=== PATIENT | female | born 1950 | race Caucasian/White ===

== ENCOUNTER 2017-05-16 00:22 | Inpatient (IN) | payer MEDICARE, SELFPAY ==
[2017-05-16 01:26] LABS: #Basophils 0.1 thou/uL (0.0-0.2); #Eosinphils 0.1 thou/uL (0.0-0.7); #Lymphocytes 1.5 thou/uL (1.20-3.40); #Monocytes 0.7 thou/uL (0.11-0.59); %Basophils 0.5 % (0.0-1.0); %Eosinophils 1.2 % (0.0-10.0); %Lymphocytes 12.2 % (21.0-51.0); %Monocytes 5.9 % (0.0-10.0); %Neutrophils 80.2 % (42.0-75.0); Band 1 % (5-11); Eosinophils 3 % (0-10); Hypochromia MARKED = >30 cells (100X) (0-5/hpf); Lymphocytes 19 % (21-51); MDiff Complete? YES; Mean Corpuscular Volume 57.9 fl (81.0-99.0); Mean Platelet Volume 5.7 fL (7.4-10.4); Microcytosis MARKED = >30 cells (100X) (0-5/hpf); Monocytes 3 % (0-10); Neutrophil 74 % (42-75); Nucleated RBC 1 % (0); Ovalocytes SLIGHT = 2-5 cells (100X) (0-1/hpf); PLT Morphology Comment Appears Adequate; Platelet Count 347 thou/uL (130-400); RBC Distribution Width 21.6 % (11.5-14.5); Reflex for Review?? YES; White Blood Cell (WBC) Count 12.5 thou/uL (4.8-10.8)
[2017-05-16 01:28] LABS: ALT (SGPT) 146 U/L (8-55); AST (SGOT) 49 U/L (5-34); Albumin 3.5 g/dL (3.4-4.8); Alkaline Phosphatase 163 U/L (40-150); Anion Gap 18 mmol/L (10-20); BUN (Urea Nitrogen) 20 mg/dL (9.8-20.1); Bilirubin, Total 0.3 mg/dL (0.2-1.2); Calc. Creatinine Clearance 0 mL/min (70-130); Calcium 8.9 mg/dL (7.8-10.44); Carbon Dioxide 19 mmol/L (23-31); Chloride 103 mmol/L (98-107); Estimated GFR-MDRD 53; Globulin 3.1 g/dL (2.4-3.5); Glucose 158 mg/dL (80-115); Protein, Total 6.6 g/dL (6.0-8.3); Sodium 136 mmol/L (136-145)
[2017-05-16 01:30] LABS: CKMB 1.9 ng/mL (0-6.6); Troponin I 0.013 ng/mL (< 0.028)
[2017-05-16 01:45] LABS: Hemoglobin 3.5 g/dL (12.0-16.0); Mean Corpuscular HGB CONC 26.9 g/dL (32.0-36.0); Mean Corpuscular Hemoglobin 15.6 pg (27.0-31.0); Mean Platelet Volume 5.6 fL (7.4-10.4); Platelet Count 372 thou/uL (130-400); RBC Distribution Width 21.4 % (11.5-14.5); Red Blood Cell (RBC) Count 2.22 mill/uL (4.20-5.40); White Blood Cell (WBC) Count 13.7 thou/uL (4.8-10.8)
[2017-05-16 02:07] LABS: #Basophils 0.1 thou/uL (0.0-0.2); #Eosinphils 0.1 thou/uL (0.0-0.7); #Lymphocytes 1.6 thou/uL (1.20-3.40); %Basophils 0.6 % (0.0-1.0); %Eosinophils 0.7 % (0.0-10.0); %Lymphocytes 11.7 % (21.0-51.0); %Monocytes 7.1 % (0.0-10.0); %Neutrophils 79.9 % (42.0-75.0); Hypochromia MARKED = >30 cells (100X) (0-5/hpf); Lymphocytes 9 % (21-51); MDiff Complete? YES; Microcytosis MODERATE=15-30 cells (100X) (0-5/hpf); Monocytes 4 % (0-10); Neutrophil 86 % (42-75); Nucleated RBC 1 % (0); Ovalocytes SLIGHT = 2-5 cells (100X) (0-1/hpf); PLT Morphology Comment Appears Adequate
[2017-05-16 02:28] LABS: Reticulocyte Count 3.1 % (0.5-1.5)
[2017-05-16 03:18] LABS: Iron Less than 8 ug/dL (50-170); Iron Binding Capacity, Total 519 mcg/dL (265-497); Iron Binding Capacity, Total 521 mcg/dL (265-497)
[2017-05-16] MEDS ORDERED: Ondansetron HCl/PF 4 MG/2 ML Vial IVP PRN (03:31)
[2017-05-16] MEDS ORDERED: Acetaminophen 325 MG TAB PO PRN (03:31)
[2017-05-16] MEDS ORDERED: Ondansetron ODT 4 MG TAB SL PRN (03:31)
[2017-05-16 03:39] VITALS: BMI 41.6
[2017-05-16] MEDS ORDERED: Bisacodyl 10 MG SUPP PR PRN (04:56)
[2017-05-16] MEDS ORDERED: Ondansetron ODT 4 MG TAB PO PRN (04:56)
[2017-05-16] MEDS ORDERED: Bisacodyl 5 MG TAB PO SCH (05:00)
[2017-05-16 05:31] LABS: INR-International Normal Ratio 1.4; PTT 34.5 SEC (22.9-36.1); Prothrombin Time 17.7 SEC (12.0-14.7)
[2017-05-16] MEDS ORDERED: Nicotine 14 MG PATCH TD PRN (06:00)
--- NOTE | 2017-05-16 07:34 | HP-2 ---
DATE OF ADMISSION: 05/16/2017 CODE STATUS: FULL. PRIMARY CARE PHYSICIAN: Dr. Heath ATTENDING: Dr. Karen Rivas RESIDENT: Terell Painter M.D. - PGY-1 CHIEF COMPLAINT: Shortness of breath. HISTORY OF PRESENT ILLNESS: This is a 67-year-old female that was moving around in bed and all of a sudden got short of breath, could not move and then blacked out. She said she blacked out for like 3-5 minutes until the ambulance got there and brought her to the hospital. This happened around this evening. She says that she has been having some of these episodes of shortness of breath , getting real weak in the legs for the last few months now. She had been seeing some specialist, been trying to get some testing, has seen a heart and lung doctors over the last 4 months, has not had any real answers. She has gotten some labs ordered by Dr. Heath at the clinic, but she has not been in to get those labs drawn. She said over the last 4 months she just progressively gotten worse, gets weak, gets real short of breath, hard for her to even hold her grandchild at times. Denies any chest pain, denies any headache. The only time she ever lost consciousness was the episode last night , other than that she said she has had times where her legs have went out, but never lost consciousness, but says that she has gotten close. Reports nausea, denies any vomiting, diarrhea. Reports constipation for the last 5 days. Reports her mouth being very dry, reports that she has had decreased appetite, only eats a few bites of food for the last few months, reports having chills. Denies any fevers. She denies any blood in her stools, denies any vaginal bleeding, denies any blood in her urine. Denies any vomiting or bloody vomitus , but has reported the last few months sometimes she goes to wipe and does note blood on her wiping and there is some bloody stool at times, but has not noticed any recently. REVIEW OF SYSTEMS: All review of systems not listed in the HPI are otherwise negative at this time. PAST MEDICAL HISTORY: Diabetes mellitus type 2, DVTs in the left lower extremity, depression, tobacco abuse, peripheral vascular disease, hyperlipidemia and hypertension. PAST SURGICAL HISTORY: Hysterectomy and appendectomy. ALLERGIES: PENICILLIN causing rash. MEDICATIONS: 1. Sertraline 100 mg 1 p.o. daily. 2. Trazodone 100 mg 1 p.o. at bedtime. 3. Simvastatin 40 mg 1 tablet at bedtime. 4. Lisinopril/hydrochlorothiazide 10/12.5 mg once a day. 5. Metformin 1000 mg extended release 24 hours 1 tab daily. 6. Chantix 1 mg tablet as directed in the pack. 7. Requip 1 mg 1 p.o. at bedtime. 8. Nitroglycerin 0.4 mg sublingual tablets. 9. Aspirin 81 mg tablet. 10. Ventolin HFA inhalation aerosol solution q.4h. p.r.n. shortness of breath. 11. Eliquis 5 mg oral tablet, take 1 tablet by mouth twice daily. FAMILY HISTORY: Dad had CHF and pacemaker in place. Mom from bowel obstructions when she was 16 and from complications of surgery. PHYSICAL EXAMINATION: VITAL SIGNS: Blood pressure is 109/61, pulse 103, respirations 24, temperature is 97.2, pulse ox 100% on 2 liters. Current weight is 116 kilograms. GENERAL: She is alert and oriented x3. Well-developed, well-nourished. She is obese. She is very pale, very ashen, appropriately interactive. EYES: PERRLA. Conjunctivae are within normal limit. ENT: She has very dry mucous membranes in her mouth. No cracking, no bleeding noted. NECK: Supple, no lymphadenopathy, no thyromegaly, no bruits. CARDIOVASCULAR: Regular rate and rhythm. No murmurs, no gallops. It is hard to auscultate fully for a murmur due to her body habitus. Radial pulses, pedal pulses palpated bilaterally. RESPIRATORY: Normal breathing effort. No retractions. LUNGS: Clear to auscultation bilaterally. Again, hard to auscultate due to body habitus. ABDOMEN: Soft, nontender to palpation. Bowel sounds are in all 4 quadrants. She is mildly distended. No masses noted. Nonpainful. No rebound or guarding , no hepatomegaly noticed. EXTREMITIES: No edema, no pitting. MUSCULOSKELETAL: Structures within normal limits. She has a little bit of decreased strength. She is kind of weak, is shaking sometimes at times, gets chills often, has full range of motion. NEUROLOGIC: No focal neuro deficits. Sensation within normal limits. PSYCHIATRIC: Appropriate. LABORATORY DATA: White blood cell count 13.7, hemoglobin is 3.5. Hematocrit is 12.9, MCV is 58, platelets are 372. Sodium is 136, potassium is 4.0, chloride 103, bicarbonate is 19, BUN is 20, creatinine 1.04, GFR is 53, glucose is 158. CK-MB is 1.9, troponin 0.013. Calcium is 8.9, total protein 6.6, albumin 3.5, total bilirubin 0.3, AST is 49, ALT is 146, alkaline phosphatase 163. Iron is less than 8. TIBC is 519. Fecal occult blood test is negative. Chest x-ray and brain CT reads are pending at this time. ASSESSMENT AND PLAN: 1. Syncope secondary to symptomatic anemia, reports blood in stools in the past. We will give her 2 blood transfusions. Recheck H&H after 4 hours and possibly need further transfusion after. We will get a CT of her abdomen and pelvis as she is constipated and possibly having GI bleed. We will get possible GI consult. We will repeat fecal occult blood test. We will keep her n.p.o. for now. Depending on what GI wants to do. We will continue to follow and treat symptoms as needed. 2. Transaminitis. Plan as above, getting a CT abdomen and pelvis. We will repeat a.m. CMP tomorrow and check labs. 3. Diabetes mellitus type 2. Holding metformin for imaging at this time, can restart afterwards. Blood sugars are stable. We will restart insulin if sugars get above 180. Does not take insulin at home. 4. Deep venous thrombosis. Holding Eliquis due to the symptomatic anemia and bleed. We will give sequential compression devices for DVT prophylaxis right now. 5. Hypertension. Continue lisinopril/hydrochlorothiazide. 6. Hyperlipidemia. Continue her statin. 7. Tobacco abuse. She takes Chantix at home. We will give her nicotine patch while she is here p.r.n. as needed. 8. Constipation. Will give her Bisacodyl and may need to add more medications if she continues to not have a bowel movement. 9. Elevated Troponin. Troponin likely elevated due to demand ischemia. Will trend. MTDD
--- NOTE | 2017-05-16 07:54 | RAD ---
SINGLE VIEW CHEST: Date: 05/16/17 COMPARISON: 10/12/13. HISTORY: Difficulty breathing and syncope. FINDINGS: Single view of the chest shows an enlarged cardiomediastinal silhouette. There is no evidence of cons olidation, mass, or pleural effusion. Degenerative changes are seen in the spine. IMPRESSION: Cardiomegaly without evidence of acute cardiopulmonary disease. POS: [facility]
--- NOTE | 2017-05-16 08:50 | CT ---
PRELIMINARY REPORT/[facility]/EMERGENCY AFTER HOURS PROCEDURE: EXAM: CT Head Without Intravenous Contrast CLINICAL HISTORY: 67 years old, female; Signs and symptoms; Syncope and collapse; Patient HX: 67 yo f presents to ed fo r syncopal episode. Pt reports feeling SOB for past x3-4 months. Tonight, pt was trying to get a pill ow when she started feeling like she couldn't breathe then had a syncopal episode. On ems arrival, pt with gcs 3 and unresponsive. Pt was bagged for a few minutes then gcs improved to 15 for rest of tra nsport. Pt states this is the first time she has passed out but ems reports pt's friend says pt has been having syncopal episodes for past few months. Ems reports pt C/O burning sensation to legs with walking. Pt has h/o x3 dvts, takes eliquis. Pt not on home o2. TECHNIQUE: Axial computed tomography images of the head/brain without intravenous contrast. COMPARISON: No relevant prior studies available. FINDINGS: Brain: Mild volume loss No hemorrhage. No significant white matter disease. No edema. Ventricles: Unremarkable. No ventriculomegaly. Bones/joints: Unremarkable. No acute fracture. Soft tissues: Unremarkable. Sinuses: Unremarkable as visualized. No acute sinusitis. Mastoid air cells: Unremarkable as visualized. No mastoid effusion. IMPRESSION: No intracranial hemorrhage.Please see discussion above. Thank you for allowing us to participate in the care of your patient. Dictated and Authenticated by: Dmitry Pop MD 05/16/2017 1:18 AM Central Time ([place] & [place]) FINAL REPORT EMERGENT AFTER HOURS CT OF THE BRAIN WITHOUT CONTRAST: FINDINGS/IMPRESSION: I agree with the findings and impression given in the preliminary report per [facility] physician. No dieudonne dence of acute intracranial abnormality. POS: [facility]
[2017-05-16] MEDS: Lisinopril/Hydrochlorothiazide 10 mg/12.5 mg Tablet PO SCH (11:58)
[2017-05-16 13:38] LABS: Hemoglobin 5.1 g/dL (12.0-16.0)
--- NOTE | 2017-05-16 13:55 | CT ---
CT OF THE ABDOMEN AND PELVIS WITHOUT AND WITH CONTRAST: COMPARISON: None. HISTORY: Syncope. Rectal bleeding and anemia. Elevated LFTs. TECHNIQUE: Multiple contiguous axial images were obtained in a CT of the abdomen and pelvis without and with IV contrast. P.o. contrast was administered. Coronal reformats were performed. FINDINGS: The liver, gallbladder, kidneys, adrenal glands, spleen, and pancreas are unremarkable. No free air, free fluid, or stranding changes are seen in the abdomen or pelvis. There are scattered diverticula in the colon. No obvious colonic mass is seen. The small bowel is n ormal in caliber without focal abnormality. Atherosclerotic calcifications are seen in the aorta. No abdominal or pelvic lymphadenopathy are see n. There is a 2.1 cm fat-containing umbilical hernia. There are varices in the lower abdominal wall. I t appears that these varices are caused by venous obstruction of the left leg. The left external rebel ac vein and common iliac vein are minuscule in size. The right external iliac vein and common iliac vein are normal in appearance. These varices likely help drain the left leg to the right external il iac vein. The visualized inferior thorax is unremarkable. Degenerative changes are seen in the spin e. IMPRESSION: 1. Diverticulosis. 2. Abnormal venous drainage of the left leg as above with collateral flow in the lower abdominal wal l. POS: [facility]
[2017-05-16] MEDS ORDERED: Iopamidol 370 76% 100 ML VIAL ONE (15:48)
--- NOTE | 2017-05-16 16:22 | CON ---
DATE OF CONSULTATION: 05/16/2017 REFERRING PHYSICIAN: Dr. Flower Heath REASON FOR CONSULTATION: Severe, symptomatic anemia. The admitting hemoglobin was 3.5, hematocrit 1 2.9. HISTORY OF PRESENT ILLNESS: Elham Vo is a 67-year-old female who has been seeing Dr. Natividad Heath for the last couple of years. The patient had been having difficulty breathing over the l ast 6-7 months. This is more exertional dyspnea. She had no orthopnea or PND. The symptoms are get ting progressively worse. She was seen by Dr. Nick Blanchard 6 or 7 months ago and her cardiology workup was negative. She was supposed to see Dr. Aquino, nutrition and dietetics instructor this past coming . Apparpatricia mitch she had a PFT done as an outpatient. The symptoms are progressive and getting worse and worse. The patient has no history of asthma or disease. The patient has no history of hematochezia or melena. However, she tells me she had 1 episode of dark stool about 4-6 months ago. The patient's bowel movements are fairly regular. There is no history of change in bowel habits. No abdominal varghese n. She does complain of nausea and poor appetite recently. There is no dysphagia or odynophagia. T here is no prior history of anemia. She is status post hysterectomy several years ago. The patient apparently was walking around yesterday at home and she felt dizzy and fainted. This lasted only abo ut 3-5 minutes. An ambulance was called and she was brought to the ER. In the ER, the evaluation sh owed severe anemia. She has been transfused so far 2 units of packed RBCs. No other relevant histor y. ALLERGIES: PENICILLIN. SOCIAL HISTORY: The patient is a former smoker. She also does not drink alcohol. MEDICAL ILLNESSES: 1. Hypertension. 2. Diabetes mellitus. 3. Deep vein thrombosis, left leg and is on Eliquis 1 twice a day. 4. Hyperlipidemia. 5. Depression/anxiety. SURGERIES: 1. Status post appendectomy. 2. Status post hysterectomy. FAMILY HISTORY: Strong heart disease in her father. Mother of a bowel obstruction and complica tions with surgery. MEDICATIONS: Reviewed which include sertraline, trazodone, simvastatin, lisinopril/ hydrochlorothiaz crystal, metformin, Chantix, Requip, nitroglycerin p.r.n., Ventolin inhaler and Eliquis 5 mg p.o. twice a day. REVIEW OF SYSTEMS: AUDIO VIDEO TECH: Syncope yesterday most likely secondary to profound anemia, no history of TIA, no chronic heada domi, no dizziness from before. No seizure disorder. RESPIRATORY: No history of dyspnea on exertion, no coughing, no wheezing. No hemoptysis. CARDIOVASCULAR: Exertional dyspnea and usually has some mild orthopnea. No history of chest pain, n o palpitations. GASTROINTESTINAL: As in history of present illness. GENITOURINARY: No hematuria or dysuria. MUSCULOSKELETAL/ENDOCRINE/HEMATOLOGICAL: Unremarkable. NEUROPSYCHIATRIC: History of depression. PHYSICAL EXAMINATION: GENERAL: Patient is obese, appears comfortable. She is awake, alert, and communicative. She is khadar ented to time, place and person. VITAL SIGNS: Afebrile, temperature 98.8 degrees Fahrenheit, pulse is 75, blood pressure 103/63. HEENT: Conjunctivae clear. NECK: Supple. No adenitis or thyromegaly noted. CARDIOVASCULAR: First and second heart sounds normal. LUNGS: Clear to auscultation. ABDOMEN: Flabby and pendulous. Abdomen is nontender. She does have a scar over the midline lower a bdomen. There is no organomegaly or masses. Bowel sounds are normal. EXTREMITIES: No edema. LABORATORY DATA: From today, CBC: WBC 13,700, hemoglobin 3.5 and hematocrit 12.9, MCV 58, platelet count 372,000, polymorphs 86, lymphocytes 11, monocytes 9. Serum chemistries; sodium 136, potassium 4, chloride 103, bicarbonate 19, BUN 20, creatinine is 1.04, glucose 158, calcium 8.9. Iron is 8, TI BC is 521 indicating iron deficiency, AST 49, ALT 146, alkaline phosphatase 163, bilirubin 0.3, album in is 3.5. The patient is about to get a CAT scan of abdomen and sonogram later on today. CLINICAL IMPRESSION: 1. A 67-year-old with severe symptomatic anemia indicative of slow blood loss. The patien t did have an episode of some dark stools a few months ago. The patient is on Eliquis over the last several months because of deep venous thrombosis. Her anemia is very profound and also says she is s everely iron deficient. 2. Obesity. 3. Hypertension. 4. Diabetes mellitus. 5. Hyperlipidemia. 6. Deep venous thrombosis. RECOMMENDATIONS: Hold the Eliquis for the next 48 hours and I will plan for EGD and colonoscopy . In the meantime, I agree with proceeding with abdominal CAT scan and sonogram because of abnormal liver function tests.
--- NOTE | 2017-05-16 17:33 | PDOC.EVN ---
Event Note - Event Note Event Note: Patient seen and evaluated with resdients. Case discussed with Dr. Painter and agree with history, physical and assessment and plan as documented by resident. Briefly, this is a 67 year old female with history of type 2 DM, HTN, HLD, and recurrent DVT on eliquis presents after syncopal episode at home. PAtient reports that she has been having some near-syncopal episodes for last 1-2 months but never completely blacked out until last night. Has been having increased SOB over similar amount of time. Denies any CP, CHERRY. Denies any N/V/D, abdominal pain, hematemesis, hematochezia. Significant lab Hgb=3.0, Hct= 11.6, Fe = 8. A/P: 1) Severe symptomatic iron deficiency anemia- transfused 2u pRBCs- repeat Hgb= 5.1; trasnfuse additional 2 pRBCs. GI consuilted and will plan for RGD and colonoscopy on Tuesday after patient has been off the eliquis. Hold eliquis due to severe anemia. 2) H/o recurrent LLE DVT- hold eliquis for now pending GI evaluation; may need IVC filter. 3) DM- continue home meds. 4) Transaminitis- uncertain etiology- CT abd and RUQ USG ordered.
[2017-05-16] MEDS: Acetaminophen 325 MG TAB PO PRN (17:50)
[2017-05-16 20:17] LABS: Hemoglobin 5.6 g/dL (12.0-16.0)
[2017-05-16] MEDS: Simvastatin 40 MG TAB PO SCH (20:24)
[2017-05-16] MEDS: traZODone HCl 50 MG TAB PO SCH (20:24)
[2017-05-17 05:59] LABS: ALT (SGPT) 123 U/L (8-55); AST (SGOT) 63 U/L (5-34); Albumin 3.7 g/dL (3.4-4.8); Alkaline Phosphatase 173 U/L (40-150); Anion Gap 12 mmol/L (10-20); BUN (Urea Nitrogen) 19 mg/dL (9.8-20.1); Bilirubin, Total 0.5 mg/dL (0.2-1.2); Calc. Creatinine Clearance 106 mL/min (70-130); Calcium 9.1 mg/dL (7.8-10.44); Carbon Dioxide 25 mmol/L (23-31); Chloride 104 mmol/L (98-107); Estimated GFR-MDRD 55; Globulin 3.1 g/dL (2.4-3.5); Glucose 138 mg/dL (80-115); Potassium 4.2 mmol/L (3.5-5.1); Protein, Total 6.8 g/dL (6.0-8.3); Sodium 137 mmol/L (136-145)
[2017-05-17 06:15] LABS: #Eosinphils 0.1 thou/uL (0.0-0.7); #Lymphocytes 1.7 thou/uL (1.20-3.40); #Neutrophils 8.6 thou/uL (1.40-6.50); %Basophils 0.4 % (0.0-1.0); %Eosinophils 0.8 % (0.0-10.0); %Lymphocytes 14.6 % (21.0-51.0); %Monocytes 8.5 % (0.0-10.0); %Neutrophils 75.8 % (42.0-75.0); Acanthocytes SLIGHT = 1-5 cells (100X) (None Seen); Anisocytosis MARKED = >30 cells (100X) (0-5/hpf); Band 1 % (5-11); Elliptocytes SLIGHT = 2-5 cells (100X) (0-1/hpf); Eosinophils 1 % (0-10); Hemoglobin 6.7 g/dL (12.0-16.0); Hypochromia MARKED = >30 cells (100X) (0-5/hpf); Lymphocytes 13 % (21-51); MDiff Complete? YES; Mean Corpuscular HGB CONC 30.5 g/dL (32.0-36.0); Mean Corpuscular Hemoglobin 21.9 pg (27.0-31.0); Mean Corpuscular Volume 71.6 fl (81.0-99.0); Monocytes 4 % (0-10); Neutrophil 81 % (42-75); Nucleated RBC 1 % (0); PLT Morphology Comment Appears Adequate; Platelet Count 293 thou/uL (130-400); Polychromasia SLIGHT = 2-3 cells (100X) (0-2/hpf); RBC Distribution Width 28.3 % (11.5-14.5); Red Blood Cell (RBC) Count 3.06 mill/uL (4.20-5.40); Schistocytes SLIGHT = 2-5 cells (100X) (0-1/hpf); White Blood Cell (WBC) Count 11.4 thou/uL (4.8-10.8)
[2017-05-17] MEDS ORDERED: Prevnar 13-Val Conj/PF 0.5 ML SYRINGE IM ONE (09:00)
--- NOTE | 2017-05-17 09:05 | PDOC.FM ---
- Subjective Subjective: Patient reports doing well overnight. Denies dizziness when walking to bathroom. Pain in knee still present, but improving. Denies N/V, CP, SOB, CHERRY. - Objective MAR Reviewed: Yes Vital Signs & Weight: Vital Signs (12 hours) Temp Pulse Pulse Resp BP BP BP 05/17/17 08:00 99.2 F 81 20 138/80 05/17/17 04:00 98.3 F 75 18 126/75 05/17/17 01:17 98.5 F 81 18 126/62 05/16/17 23:43 98.2 F 83 20 117/69 05/16/17 22:40 98.9 F 79 18 119/76 05/16/17 22:25 8.5 F L 81 20 122/66 Pulse Ox 05/17/17 08:00 94 L 05/17/17 04:00 97 05/17/17 01:17 96 05/16/17 23:43 98 05/16/17 22:40 95 05/16/17 22:25 95 Weight Weight 122.697 kg I&O: 05/16/17 05/17/17 05/18/17 06:59 06:59 06:59 Intake Total 541 2690 Balance 541 2690 Result Diagrams: 05/17/17 05:23 05/17/17 05:23 <Ramy Reese - Last Filed: 05/17/17 09:03> - Objective Vital Signs & Weight: Vital Signs (12 hours) Temp Pulse Pulse Pulse Pulse Resp BP 05/17/17 14:58 98.2 F 79 20 05/17/17 12:10 76 88 05/17/17 11:35 98.9 F 79 20 05/17/17 09:48 81 138/80 05/17/17 08:00 99.2 F 81 20 BP BP BP BP Pulse Ox Pulse Ox Pulse Ox 05/17/17 14:58 118/73 05/17/17 12:10 119/63 111/58 L 96 97 05/17/17 11:35 117/60 95 05/17/17 09:48 05/17/17 08:00 138/80 94 L Weight Weight 122.697 kg I&O: 05/16/17 05/17/17 05/18/17 06:59 06:59 06:59 Intake Total 541 2690 360 Balance 541 2690 360 Result Diagrams: 05/17/17 09:07 05/17/17 05:23 <NielsAny Shirin - Last Filed: 05/17/17 16:27> Phys Exam - Physical Examination Constitutional: NAD HEENT: PERRLA, moist MMs Neck: no JVD, full ROM Respiratory: no wheezing, clear to auscultation bilateral Cardiovascular: RRR, no significant murmur Gastrointestinal: soft, non-tender Musculoskeletal: no edema, pulses present Neurological: normal sensation, moves all 4 limbs Psychiatric: normal affect, A&O x 3 <Ramy Reese - Last Filed: 05/17/17 09:03> Dx/Plan (1) Symptomatic anemia Code(s): D64.9 - ANEMIA, UNSPECIFIED Status: Acute Plan: patient is s/p 4 units pRBC symptoms improved, but still occasionally requires oxygen GI consulted, recs greatly appreciated colonoscopy tomorrow (2) Transaminitis Code(s): R74.0 - NONSPEC ELEV OF LEVELS OF TRANSAMNS & LACTIC ACID DEHYDRGNSE Status: Acute Plan: improving, suspected due to poor perfusion continue to monitor (3) PVD (peripheral vascular disease) Code(s): I73.9 - PERIPHERAL VASCULAR DISEASE, UNSPECIFIED Status: Acute (4) DM type 2 (diabetes mellitus, type 2) Status: Acute Plan: continue home medications (5) Hyperlipidemia Code(s): E78.5 - HYPERLIPIDEMIA, UNSPECIFIED Status: Acute Plan: d/c home on statin (6) History of DVT (deep vein thrombosis) Code(s): Z86.718 - PERSONAL HISTORY OF OTHER VENOUS THROMBOSIS AND EMBOLISM Status: Acute (7) HTN (hypertension) Code(s): I10 - ESSENTIAL (PRIMARY) HYPERTENSION Status: Acute Plan: continue home meds (8) Depression Code(s): F32.9 - MAJOR DEPRESSIVE DISORDER, SINGLE EPISODE, UNSPECIFIED Status : Acute (9) Tobacco use Code(s): Z72.0 - TOBACCO USE Status: Acute Plan: nicotine patch prn <Ramy Reese - Last Filed: 05/17/17 09:03> Attending Addendum - Attending Addendum I personally evaluated the patient and discussed the management with Dr. Reese I agree with the History, Examination, Assessment and Plan documented above with any addition or exceptions noted below. Severe Symptomatic iron deficiency anemia- improving after 4U PRBC. Hgb 3-6.7. Still with dypnea on exertion. Will transuse 1 more PRBC with goal hgb >7. EGD /colonoscopy tomorrow with Dr. Houston. Narrowed left external and common iliac vein with collaterals- probably contributing to recurrent DVTs Recurrent DVTs- off eliquis for now. Will discuss IVC filter placement with CV Surgery. <Any Bowser - Last Filed: 05/17/17 16:27>
[2017-05-17 09:24] LABS: Hemoglobin 6.9 g/dL (12.0-16.0)
[2017-05-17] MEDS: Lisinopril/Hydrochlorothiazide 10 mg/12.5 mg Tablet PO SCH (09:48)
--- NOTE | 2017-05-17 12:26 | PRG ---
DATE OF SERVICE: 05/17/2017 Ms. Elham Vo is a very pleasant 67-year-old female hospitalized with a syncopal episode. She was found to have severe microcytic anemia subsequently. The patient has been transfused. The admi tting CBC showed severe anemia with hematocrit of 11.6, hemoglobin 3. It went up to 6.7 this morning . The hematocrit is 21.9. She is actually feeling symptomatically much better. She has no abdomina l pain, no nausea or vomiting. She had an abdominal CAT scan done yesterday which revealed nonbleedi ng hernia, varicosities over the periumbilical area and also diverticulosis. She has no complaints. PHYSICAL EXAMINATION: GENERAL: Patient is obese, appears comfortable. VITAL SIGNS: Temperature 98.9 degrees Fahrenheit, pulse is 79, blood pressure is 117/60. CARDIOVASCULAR: Within normal limits. ABDOMEN: Soft to palpate. No organomegaly. No tenderness. No masses. ADMITTING DIAGNOSIS: 1. Severe microcytic anemia. 2. Iron deficiency. PLAN: EGD and colonoscopy tomorrow. I had a long talk with Ms. Vo and explained about the bow el prep with clear liquid diet for all of today and also the entire [employer] prep this evening and to morning. I explained the procedure in detail. She is agreeable. I will plan for EGD and col onoscopy tomorrow morning.
[2017-05-17] MEDS: Acetaminophen 325 MG TAB PO PRN ×2 (14:45→22:00)
[2017-05-17] MEDS ORDERED: GoLYTELY 4,000 ml Bottle PO SCH (17:00)
--- NOTE | 2017-05-17 17:31 | ULT ---
RIGHT UPPER QUADRANT ULTRASOUND: 05/17/17 INDICATION: Transaminitis. FINDINGS: There is heterogeneity and prominence of the gallbladder wall. The gallbladder is contacted which jerome s limit assessment. There is a punctate focus of increased echogenicity within the contracted gallbla dder lumen. Lemon's sign is reported as negative by airline reservation agent. Common duct is normal in diameter. There is mild increased echogenicity of the liver which may be on the basis of fatty infiltration. No ascites is seen. IMPRESSION: Abnormal heterogeneity and thickening of the gallbladder wall, although the gallbladder is contracted which limits assessment. Recommend clinical correlation in this regard. There is no shadowing cholelithiasis evident. Punctate focus of increased echogenicity of the gallbladder lumen may be on the basis of a small poly p. Attempt for further characterization may be obtained with repeat exam where the gallbladder is mor e optimally distended. POS: [facility]
--- NOTE | 2017-05-17 20:38 | CON ---
DATE OF CONSULTATION: 05/17/2017 REQUESTING PHYSICIAN: Dr. Ramy Reese. CHIEF COMPLAINT: Syncope. HISTORY OF PRESENT ILLNESS: The patient is a 67-year-old woman with previous history of deep venous thrombosis who has been on anticoagulation for many years. She recently had fairly sudden developmen t of shortness of breath and then fainted and upon presentation at the emergency room, screening labs showed her to be profoundly anemic with hemoglobin in the 3s an MCV in the 50s. Her Eliquis is on h old and she has been transfused. She is scheduled for upper and lower GI endoscopy to assess for jim dily accessible gastrointestinal source of blood loss. The patient tells me that she has had 3 episo mckinley of deep venous thrombosis in the last 30 or so years and in review of the [facility] records, I s ee 2 encounters, one in 2013 and 2014 that could be attributed to issues related to DVT. The most re cent one in 2014, she says is the last time she underwent any sort of evaluation or had any suspicion that she had recurrence of DVT. At that time, there was compressibility of the veins seen and some residual nonocclusive thrombus that was felt to be consistent with old recanalized DVT. The patient says that in the past her legs swelled considerably more than it does now. Her left leg is only smal l amount larger than her right leg currently. She has not had any recent pain or exacerbations of he r swellings associated with either lower extremity. PAST MEDICAL HISTORY: Significant for hypertension, diabetes, hyperlipidemia. PAST SURGICAL HISTORY: She has had a previous hysterectomy and appendectomy. HOME MEDICATIONS: Metformin, Eliquis, Zocor, Zoloft, and trazodone in addition to her Eliquis. Curr ently, she is on prednisone, sertraline, Zocor, trazodone, and her Eliquis is on hold. She is underg oing a bowel prep this evening and is currently on a clear liquid diet. ALLERGIES: She reports an allergy to PENICILLIN, which causes rash. SOCIAL HISTORY: She is a smoker. FAMILY HISTORY: Significant for congestive failure in her father. PHYSICAL EXAMINATION: GENERAL: She is in no distress. VITAL SIGNS: Heart rate is in the 60-80 range. Blood pressure 111/58, temperature is 98.4. She has no obvious xanthelasma. LUNGS: Chest is clear to auscultation. CARDIOVASCULAR: She has a regular rate and rhythm. ABDOMEN: Obese. EXTREMITIES: She has palpable radial, femoral, and dorsalis pedis pulses bilaterally. She has multi ple healed oval scars on both lower legs, more so on the left than on the right. There is perhaps so me subtle increase in size of the left leg, but no overt acute or chronic edema. She has some venous stasis pigmentation changes in both feet and ankles, a little bit more pronounced on the left. NEUROLOGIC: Grossly nonfocal. LABORATORY DATA AND IMAGING: On presentation, her white count was 12.5, hemoglobin 3.0, hematocrit 1 1.6, platelets 347,000. Her MCV was 57.9. Currently, her hemoglobin is 6.7 and hematocrit 21.9 with an MCV of 71.6, reticulocyte count on 05/16/2017 was 3.1. PT was 17.7 with an INR of 1.4, PTT 34.5. Her electrolytes were normal with the exception of CO2 being 19. Her glucose was 158, BUN 20, crea tinine 1.04, bilirubin 0.3, AST 49. ALT 146, alkaline phosphatase 163, protein 6.6, albumin 3.5. Her chest x-ray shows cardiomegaly with prominent pulmonary vascular markings. A contrast to the abdomi nal CT scan by report, the left common and external iliac venous system were described as being minis cule with variceal collaterals crossing over to the right side, but I am not able to pull up the cuts of the CT scan go down that for. The last venous Doppler that I find is from 05/2014 is described a chandrika, suggestive of an old recanalized DVT. Prior to that in 09/2013, there was lack of compressibil ity in the left femoral vein and lack of flow and compressibility in the popliteal vein more suggesti ve of an acute DVT. IMPRESSION AND RECOMMENDATIONS: At this juncture, there is no evidence of acute deep venous thrombos is and she has not had any problems related to it in a few years and it sounds like she may or may no t have been on anticoagulation that entire time. I think the risk of PE with discontinuation of her anticoagulation while her profound anemia is being evaluated is fairly low and at this stage anyway v skye cava filter is probably not warranted.
[2017-05-17 21:37] LABS: Hemoglobin 7.8 g/dL (12.0-16.0)
[2017-05-17] MEDS: traZODone HCl 50 MG TAB PO SCH (21:53)
[2017-05-17] MEDS: Simvastatin 40 MG TAB PO SCH (21:54)
[2017-05-18] MEDS ORDERED: Furosemide 20 MG TAB PO SCH (03:30)
[2017-05-18 06:06] LABS: #Basophils 0.1 thou/uL (0.0-0.2); #Eosinphils 0.2 thou/uL (0.0-0.7); #Lymphocytes 1.8 thou/uL (1.20-3.40); #Neutrophils 8.4 thou/uL (1.40-6.50); %Basophils 0.7 % (0.0-1.0); %Eosinophils 1.4 % (0.0-10.0); %Lymphocytes 15.9 % (21.0-51.0); %Monocytes 8.5 % (0.0-10.0); %Neutrophils 73.5 % (42.0-75.0); Hemoglobin 7.4 g/dL (12.0-16.0); Mean Corpuscular HGB CONC 30.6 g/dL (32.0-36.0); Mean Corpuscular Hemoglobin 22.4 pg (27.0-31.0); Mean Corpuscular Volume 73.2 fl (81.0-99.0); Mean Platelet Volume 5.7 fL (7.4-10.4); Platelet Count 287 thou/uL (130-400); RBC Distribution Width 27.9 % (11.5-14.5); Red Blood Cell (RBC) Count 3.29 mill/uL (4.20-5.40); White Blood Cell (WBC) Count 11.4 thou/uL (4.8-10.8)
[2017-05-18 06:32] LABS: HBCM Index 0.08 S/CO (0-0.79); HBSAB Concentration 0.71 mIU/mL; Hep A IgM AB Non-Reactive (NonReactive); Hep A IgM S/CO 0.19 S/CO (0-0.79); Hep B Surf AB Non-Reactive (NonReactive); Hep B Surf Ag Non-Reactive S/CO (NonReactive); Hep C IgG Ab Non-Reactive (NonReactive); Hep C Index 0.19 S/CO (0-0.79); Hepatitis B Core IGM Abs Non-Reactive (NonReactive)
[2017-05-18] MEDS: Lisinopril/Hydrochlorothiazide 10 mg/12.5 mg Tablet PO SCH (07:59)
--- NOTE | 2017-05-18 11:42 | PDOC.FM ---
- Subjective Subjective: Patient still working on bowel prep this morning. Reports BM still has some brown coloring. Feels she still needs O2 for exertion, though this is improving. Denies CP, N/V. Knee still hurts, mildly improving. - Objective MAR Reviewed: Yes Vital Signs & Weight: Vital Signs (12 hours) Temp Pulse Resp BP BP Pulse Ox 05/18/17 08:00 100 F H 78 20 05/18/17 07:59 78 139/71 05/18/17 07:56 100.0 F H 78 20 134/58 L 96 05/18/17 03:35 98.8 F 86 20 139/71 96 05/17/17 23:50 98.9 F 72 24 H 96/72 93 L Weight Weight 122.561 kg I&O: 05/17/17 05/18/17 05/19/17 06:59 06:59 06:59 Intake Total 2690 3505 Balance 2690 3505 Result Diagrams: 05/18/17 05:31 05/17/17 05:23 <Ramy Reese M - Last Filed: 05/18/17 11:39> - Objective Vital Signs & Weight: Vital Signs (12 hours) Temp Pulse Pulse Resp BP BP Pulse Ox 05/18/17 16:09 99.8 F H 86 20 125/67 93 L 05/18/17 15:14 99 F 20 117/85 92 L 05/18/17 11:47 98.8 F 79 20 124/57 L 95 05/18/17 09:47 88 05/18/17 08:00 100 F H 78 20 05/18/17 07:59 78 139/71 05/18/17 07:56 100.0 F H 78 20 134/58 L 96 Pulse Ox 05/18/17 16:09 05/18/17 15:14 05/18/17 11:47 05/18/17 09:47 93 L 05/18/17 08:00 05/18/17 07:59 05/18/17 07:56 Weight Weight 122.561 kg I&O: 05/17/17 05/18/17 05/19/17 06:59 06:59 06:59 Intake Total 2690 3505 Balance 2690 3505 Result Diagrams: 05/18/17 05:31 05/17/17 05:23 <Any Bowser Shirin - Last Filed: 05/18/17 16:13> Phys Exam - Physical Examination Constitutional: NAD HEENT: PERRLA, oral pharynx no lesions Respiratory: no wheezing, clear to auscultation bilateral Cardiovascular: RRR Gastrointestinal: soft, non-tender Musculoskeletal: pulses present 1+ edema b/l legs below knee Neurological: normal sensation, moves all 4 limbs Psychiatric: normal affect, A&O x 3 <Ramy Reese - Last Filed: 05/18/17 11:39> Dx/Plan (1) Symptomatic anemia Code(s): D64.9 - ANEMIA, UNSPECIFIED Status: Acute Plan: patient is s/p 5 units pRBC yesterday symptoms improved, but still occasionally requires oxygen GI plans to do scope this afternoon if bowel prep is adequate (2) Transaminitis Code(s): R74.0 - NONSPEC ELEV OF LEVELS OF TRANSAMNS & LACTIC ACID DEHYDRGNSE Status: Acute Plan: improving, suspected due to poor perfusion RUQ US equivocal (3) PVD (peripheral vascular disease) Code(s): I73.9 - PERIPHERAL VASCULAR DISEASE, UNSPECIFIED Status: Acute (4) DM type 2 (diabetes mellitus, type 2) Status: Acute Plan: continue home medications (5) Hyperlipidemia Code(s): E78.5 - HYPERLIPIDEMIA, UNSPECIFIED Status: Acute Plan: d/c home on statin (6) History of DVT (deep vein thrombosis) Code(s): Z86.718 - PERSONAL HISTORY OF OTHER VENOUS THROMBOSIS AND EMBOLISM Status: Acute Plan: CV surgery consulted, recs greatly appreciated currently off anticoagulation (7) HTN (hypertension) Code(s): I10 - ESSENTIAL (PRIMARY) HYPERTENSION Status: Acute Plan: continue home meds (8) Depression Code(s): F32.9 - MAJOR DEPRESSIVE DISORDER, SINGLE EPISODE, UNSPECIFIED Status : Acute (9) Tobacco use Code(s): Z72.0 - TOBACCO USE Status: Acute Plan: nicotine patch prn <Ramy Reese - Last Filed: 05/18/17 11:39> Attending Addendum - Attending Addendum I personally evaluated the patient and discussed the management with Dr. Reese I agree with the History, Examination, Assessment and Plan documented above with any addition or exceptions noted below. Severe symptomatic anemia- s/p 5U PRBC transfusion- hgb now 7.4. EGD/ Colonoscopy by GI today. h/o DVT- appreciate CV surg recs. No IVC filter indication at this time. Hold thuy <Any Bowser - Last Filed: 05/18/17 16:13>
[2017-05-18] MEDS ORDERED: Ondansetron HCl/PF 4 MG/2 ML Vial ONE (14:42)
[2017-05-18] MEDS ORDERED: Propofol 200 MG/20 ML VIAL ONE (14:42)
[2017-05-18] MEDS ORDERED: Lidocaine 1% PF 5 ML VIAL ONE (14:42)
[2017-05-18] MEDS ORDERED: PHENYLEPHRINE-NS 100 MCG/ML 10 ML SYRINGE ONE (14:42)
--- NOTE | 2017-05-18 17:44 | OP ---
DATE OF PROCEDURE: 05/18/2017 OPERATIVE PROCEDURE: Colonoscopy with polypectomy. PREOPERATIVE DIAGNOSIS: A 67-year-old female with severe microcytic anemia. The patient is undergoi ng colonoscopy. POSTOPERATIVE DIAGNOSES: 1. Diffuse colonic diverticular disease, all the way to the hepatic flexure. 2. Sessile polyp, transverse colon. 3. Sessile polyp, sigmoid colon. 4. Sessile rectal polyp. 5. Hemorrhoids. PROCEDURE NOTE: The patient was placed on the left lateral position and was given sedation by the An esthesia Department. A rectal exam was done before the scope was advanced into the rectum. No lesio ns were felt on rectal exam. The patient did have hemorrhoids. A Pentax video colonoscope was intro duced into the rectum and advanced all the way into the cecum. The prep was good. The mucosa appear ed normal throughout the colon. The appendiceal orifice, ileocecal valve, and cecum were well seen. No pathology seen. The ascending colon, no pathology seen. The hepatic flexure, transverse colon, splenic flexure, descending colon, and sigmoid colon showed scattered diverticular disease. A sessil e transverse colon polyp and another sessile sigmoid colon polyp removed with snare cautery with good hemostasis. Another sessile rectal polyp removed with snare cautery with good hemostasis. Rectum s howed hemorrhoids.
--- NOTE | 2017-05-18 17:48 | OP ---
DATE OF PROCEDURE: 05/18/2017 OPERATIVE PROCEDURE: Esophagogastroduodenoscopy with biopsy. PREOPERATIVE DIAGNOSIS: Severe microcytic anemia. POSTOPERATIVE DIAGNOSES: Gastric ulcers x3 with gastric erosions and gastritis over the gastric antr um, otherwise the exam was normal. At time of endoscopy, no active bleeding was seen. PROCEDURE IN DETAIL: The patient was placed on the left lateral position and was given sedation by A nesthesia Department. A Pentax video gastroscope under direct vision was passed down the oropharynx past the GE junction, into the stomach and subsequently the descending duodenum. The esophageal muco sa appeared normal. The GE junction, no pathology seen. Retroflexion failed to show any lesions in the fundus or cardia. The gastric body, no pathology seen. There was a linear erosion of the incisu ra angularis. The gastric antrum showed gastric ulcer, erosions, and gastritis. The duodenal bulb, descending duodenum, no pathology seen. Biopsy of the gastric antrum and gastric body. The stomach was decompressed and the scope removed. RECOMMENDATIONS: 1. Protonix 40 once a day. 2. Iron supplement. 3. Follow up H and H.
[2017-05-18 19:15] LABS: Hemoglobin 7.8 g/dL (12.0-16.0); Mean Corpuscular HGB CONC 29.9 g/dL (32.0-36.0); Mean Corpuscular Hemoglobin 21.8 pg (27.0-31.0); Mean Corpuscular Volume 72.9 fl (81.0-99.0); Mean Platelet Volume 5.9 fL (7.4-10.4); Platelet Count 256 thou/uL (130-400); RBC Distribution Width 28.1 % (11.5-14.5); Red Blood Cell (RBC) Count 3.57 mill/uL (4.20-5.40); White Blood Cell (WBC) Count 13.3 thou/uL (4.8-10.8)
[2017-05-18] MEDS: traZODone HCl 50 MG TAB PO SCH (21:13)
[2017-05-18] MEDS: Simvastatin 40 MG TAB PO SCH (21:13)
[2017-05-18] MEDS: Ferrous Sulfate 325 MG TAB PO SCH ×2 (21:29→21:36)
[2017-05-18] MEDS: Acetaminophen 325 MG TAB PO PRN (21:36)
[2017-05-19 06:33] LABS: Hemoglobin 6.7 g/dL (12.0-16.0); Mean Corpuscular Volume 73.3 fl (81.0-99.0); Mean Platelet Volume 6.8 fL (7.4-10.4); Platelet Count 243 thou/uL (130-400); RBC Distribution Width 28.5 % (11.5-14.5); Red Blood Cell (RBC) Count 3.04 mill/uL (4.20-5.40); White Blood Cell (WBC) Count 11.4 thou/uL (4.8-10.8)
[2017-05-19 07:12] LABS: #Basophils 0.1 thou/uL (0.0-0.2); #Eosinphils 0.1 thou/uL (0.0-0.7); #Lymphocytes 1.9 thou/uL (1.20-3.40); #Monocytes 1.3 thou/uL (0.11-0.59); #Neutrophils 8.1 thou/uL (1.40-6.50); %Basophils 0.6 % (0.0-1.0); %Eosinophils 0.5 % (0.0-10.0); %Lymphocytes 16.3 % (21.0-51.0); %Monocytes 11.4 % (0.0-10.0); %Neutrophils 71.1 % (42.0-75.0); Hypochromia MODERATE=16-30 cells (100X) (0-5/hpf); MDiff Complete? YES; Microcytosis MODERATE=15-30 cells (100X) (0-5/hpf); Ovalocytes SLIGHT = 2-5 cells (100X) (0-1/hpf); PLT Morphology Comment Appears Adequate; Polychromasia MODERATE = 3-4 cells (100X) (0-2/hpf); Schistocytes SLIGHT = 2-5 cells (100X) (0-1/hpf)
[2017-05-19] MEDS ORDERED: Furosemide 40 MG/4 ML VIAL SLOW IVP SCH (07:15)
[2017-05-19] MEDS: Ferrous Sulfate 325 MG TAB PO SCH ×2 (08:35→17:56)
[2017-05-19] MEDS: Lisinopril/Hydrochlorothiazide 10 mg/12.5 mg Tablet PO SCH (08:35)
--- NOTE | 2017-05-19 10:12 | RAD ---
CHEST 2 VIEWS: HISTORY: Chest pain. Edema. COMPARISON: 05/16/17. FINDINGS: Cardiac silhouette is enlarged. Pulmonary vasculature is less engorged than on the previous exam. M ediastinum is midline. No lobar consolidation, pleural fluid, or pneumothorax are visible. fashion director leads overlie the chest. IMPRESSION: 1. Cardiomegaly. 2. Pulmonary vascular congestion has improved since the previous exam. POS: [facility]
--- NOTE | 2017-05-19 11:07 | PDOC.FM ---
- Subjective Subjective: Patient doing well, legs still swollen. SOB on exertion seems to have improved and feels like she needs oxygen less, but still sometimes feels she needs supplemental oxygen. No CP, N/V. - Objective MAR Reviewed: Yes Vital Signs & Weight: Vital Signs (12 hours) Temp Pulse Resp BP Pulse Ox 05/19/17 08:35 83 05/19/17 08:00 100.2 F H 83 20 117/80 92 L 05/19/17 04:00 98.1 F 83 20 104/51 L 97 Weight Weight 122.561 kg I&O: 05/18/17 05/19/17 05/20/17 06:59 06:59 06:59 Intake Total 3505 2660 0 Balance 3505 2660 0 Result Diagrams: 05/19/17 04:57 05/17/17 05:23 <Ramy Reese M - Last Filed: 05/19/17 11:05> - Objective Vital Signs & Weight: Vital Signs (12 hours) Temp Pulse Pulse Resp BP BP Pulse Ox 05/19/17 14:17 98.5 F 79 20 117/56 L 05/19/17 11:15 98.9 F 78 20 122/62 05/19/17 10:59 99.0 F 76 20 128/65 05/19/17 08:35 83 05/19/17 08:00 100.2 F H 83 20 117/80 92 L Weight Weight 122.561 kg I&O: 05/18/17 05/19/17 05/20/17 06:59 06:59 06:59 Intake Total 3505 2660 830 Balance 3505 2660 830 Result Diagrams: 05/19/17 15:39 05/17/17 05:23 <Any Bowser - Last Filed: 05/19/17 16:15> Phys Exam - Physical Examination Constitutional: NAD HEENT: moist MMs, oral pharynx no lesions Respiratory: no wheezing, clear to auscultation bilateral Cardiovascular: RRR, no significant murmur Gastrointestinal: soft, positive bowel sounds 1+ pitting edema b/l lower extremities below knee Neurological: non-focal, moves all 4 limbs Psychiatric: normal affect, A&O x 3 <Ramy Reese - Last Filed: 05/19/17 11:05> Dx/Plan (1) Symptomatic anemia Code(s): D64.9 - ANEMIA, UNSPECIFIED Status: Acute Plan: patient is s/p 5 units pRBC H/H good last night, but this morning slightly below 7 today, so we will transfuse another pRBC unit symptoms improved, but still occasionally requires oxygen GI scope showed gastritis and gastric polyp x 3, diverticulosis Will continue to hold anticoagulation per CV surg (2) Transaminitis Code(s): R74.0 - NONSPEC ELEV OF LEVELS OF TRANSAMNS & LACTIC ACID DEHYDRGNSE Status: Acute Plan: suspected due to poor perfusion RUQ US equivocal (3) PVD (peripheral vascular disease) Code(s): I73.9 - PERIPHERAL VASCULAR DISEASE, UNSPECIFIED Status: Acute (4) DM type 2 (diabetes mellitus, type 2) Status: Acute Plan: continue home medications (5) Hyperlipidemia Code(s): E78.5 - HYPERLIPIDEMIA, UNSPECIFIED Status: Acute Plan: d/c home on statin (6) History of DVT (deep vein thrombosis) Code(s): Z86.718 - PERSONAL HISTORY OF OTHER VENOUS THROMBOSIS AND EMBOLISM Status: Acute Plan: CV surgery consulted, recs greatly appreciated currently off anticoagulation Not appropriate IVC filter at this time Will hold anticoagulation and f/u in outpatient setting (7) HTN (hypertension) Code(s): I10 - ESSENTIAL (PRIMARY) HYPERTENSION Status: Acute Plan: continue home meds (8) Depression Code(s): F32.9 - MAJOR DEPRESSIVE DISORDER, SINGLE EPISODE, UNSPECIFIED Status : Acute (9) Tobacco use Code(s): Z72.0 - TOBACCO USE Status: Acute Plan: nicotine patch prn counseled <Ramy Reese - Last Filed: 05/19/17 11:05> Attending Addendum - Attending Addendum I personally evaluated the patient and discussed the management with Dr. Reese I agree with the History, Examination, Assessment and Plan documented above with any addition or exceptions noted below. Severe iron deficiency secondary to iron deficiency from gastric ulcers- 1U PRBC today for goal of h/h >7 prior to discharge. Home on ferrous sulfate, protonix, and avoidance of ASA/NSAIDs/eliquis. Will give dose of lasix after transfusion. Stable for d/c home once weaned off O2 this afternoon. <Any Bowser - Last Filed: 05/19/17 16:15>
[2017-05-19 15:55] LABS: Hemoglobin 8.1 g/dL (12.0-16.0); Mean Corpuscular Hemoglobin 22.9 pg (27.0-31.0); Mean Corpuscular Volume 76.3 fl (81.0-99.0); Mean Platelet Volume 5.8 fL (7.4-10.4); Platelet Count 231 thou/uL (130-400); RBC Distribution Width 28.3 % (11.5-14.5); Red Blood Cell (RBC) Count 3.54 mill/uL (4.20-5.40); White Blood Cell (WBC) Count 10.7 thou/uL (4.8-10.8)
[2017-05-19] MEDS: Simvastatin 40 MG TAB PO SCH (21:05)
[2017-05-19] MEDS: Acetaminophen 325 MG TAB PO PRN (21:05)
[2017-05-19] MEDS: traZODone HCl 50 MG TAB PO SCH (21:05)
[2017-05-20 05:47] LABS: #Basophils 0.1 thou/uL (0.0-0.2); #Eosinphils 0.1 thou/uL (0.0-0.7); #Lymphocytes 1.8 thou/uL (1.20-3.40); #Neutrophils 5.7 thou/uL (1.40-6.50); %Basophils 0.7 % (0.0-1.0); %Eosinophils 1.4 % (0.0-10.0); %Lymphocytes 20.6 % (21.0-51.0); %Neutrophils 65.4 % (42.0-75.0); Hemoglobin 8.1 g/dL (12.0-16.0); Mean Corpuscular HGB CONC 32.5 g/dL (32.0-36.0); Mean Corpuscular Hemoglobin 25.2 pg (27.0-31.0); Mean Corpuscular Volume 77.5 fl (81.0-99.0); Mean Platelet Volume 5.8 fL (7.4-10.4); Platelet Count 227 thou/uL (130-400); RBC Distribution Width 28.2 % (11.5-14.5); Red Blood Cell (RBC) Count 3.22 mill/uL (4.20-5.40); White Blood Cell (WBC) Count 8.7 thou/uL (4.8-10.8)
[2017-05-20] MEDS: Ferrous Sulfate 325 MG TAB PO SCH (07:58)
[2017-05-20] MEDS: Lisinopril/Hydrochlorothiazide 10 mg/12.5 mg Tablet PO SCH (07:58)
[2017-05-20 08:27] VITALS: TEMP 97.6
--- NOTE | 2017-05-20 08:40 | PDOC.FM ---
- Subjective Subjective: Patient reports doing better overnight regarding dizziness and SOB on exertion to bathroom. Reports her knee still hurts some, but improves with tylenol. Leg swelling also improved. Denies CP, N/V. Patient continues to fall into low 90s and upper 80s on room air. Improves on 1.5L oxygen. - Objective MAR Reviewed: Yes Vital Signs & Weight: Vital Signs (12 hours) Temp Pulse Resp BP BP Pulse Ox 05/20/17 07:55 97.6 F 72 20 136/60 94 L 05/20/17 04:00 98.1 F 75 20 115/58 L 96 05/20/17 00:00 98.3 F 77 16 115/53 L 92 L Weight Weight 122.561 kg I&O: 05/19/17 05/20/17 05/21/17 06:59 06:59 06:59 Intake Total 2660 2830 Balance 2660 2830 Result Diagrams: 05/20/17 05:10 05/17/17 05:23 <Ramy Reese M - Last Filed: 05/20/17 08:37> - Objective Vital Signs & Weight: Vital Signs (12 hours) Pulse Resp BP Pulse Ox 05/20/17 12:07 16 94 L 05/20/17 11:29 18 93 L 05/20/17 10:45 80 123/70 Weight Weight 122.561 kg I&O: 05/19/17 05/20/17 05/21/17 06:59 06:59 06:59 Intake Total 2660 2830 Balance 2660 2830 Result Diagrams: 05/20/17 05:10 05/17/17 05:23 <Any Bowser - Last Filed: 05/20/17 21:31> Phys Exam - Physical Examination Constitutional: NAD HEENT: PERRLA, moist MMs Neck: full ROM Respiratory: no wheezing, clear to auscultation bilateral Cardiovascular: RRR, no significant murmur Gastrointestinal: soft, non-tender trace edema b/l LE, worse on left Neurological: normal sensation, moves all 4 limbs Psychiatric: normal affect, A&O x 3 <Ramy Reese - Last Filed: 05/20/17 08:37> Dx/Plan (1) Symptomatic anemia Code(s): D64.9 - ANEMIA, UNSPECIFIED Status: Acute Plan: patient received 6th unit pRBC yesterday, Hg 8.1 on recheck and this morning symptoms of SOB have improved significantly. BNP was ordered yesterday 2/2 continued SOB and LE swelling, BNP: >[address] Blanchard office this morning and they are faxing over report from ECHO done 01/2017 With patient's continued SOB, we will plan to d/c home with HH discussed with daughter, Aleena, last night about follow up plan and she was amenable GI scope showed gastritis and gastric polyp x 3, diverticulosis Will continue to hold anticoagulation per CV surg (2) Transaminitis Code(s): R74.0 - NONSPEC ELEV OF LEVELS OF TRANSAMNS & LACTIC ACID DEHYDRGNSE Status: Acute Plan: suspected due to poor perfusion RUQ US equivocal (3) PVD (peripheral vascular disease) Code(s): I73.9 - PERIPHERAL VASCULAR DISEASE, UNSPECIFIED Status: Acute (4) DM type 2 (diabetes mellitus, type 2) Status: Acute Plan: continue home medications (5) Hyperlipidemia Code(s): E78.5 - HYPERLIPIDEMIA, UNSPECIFIED Status: Acute Plan: d/c home on statin (6) History of DVT (deep vein thrombosis) Code(s): Z86.718 - PERSONAL HISTORY OF OTHER VENOUS THROMBOSIS AND EMBOLISM Status: Acute Plan: CV surgery consulted, recs greatly appreciated currently off anticoagulation Not appropriate IVC filter at this time Will hold anticoagulation and f/u in outpatient setting (7) HTN (hypertension) Code(s): I10 - ESSENTIAL (PRIMARY) HYPERTENSION Status: Acute Plan: continue home meds (8) Depression Code(s): F32.9 - MAJOR DEPRESSIVE DISORDER, SINGLE EPISODE, UNSPECIFIED Status : Acute (9) Tobacco use Code(s): Z72.0 - TOBACCO USE Status: Acute Plan: nicotine patch prn counseled <Ramy Reese - Last Filed: 05/20/17 08:37> Attending Addendum - Attending Addendum I personally evaluated the patient and discussed the management with Dr. Reese at 1020 am. I agree with the History, Examination, Assessment and Plan documented above with any addition or exceptions noted below. Severe symptomatic anemia secondary to gastric ulcers- home on PPI, iron. Avoid ASA/NSAIDs/Eliquis High output heart failure secondary to anemia- elevated BNP but review of echo from 01/2017 shows EF 55-60% with grade I diastolic dysfunction. Lungs clear. Patient tolerated wean of O2 and stable for d/c. F/U in one week with Dr. Heath. <Any Bowser - Last Filed: 05/20/17 21:31>
[2017-05-20] MEDS ORDERED: Furosemide 40 MG TAB PO SCH (11:30)
[2017-05-20 13:47] VITALS: BP 123/70
--- NOTE | 2017-05-23 09:36 | DIS-2 ---
DATE OF ADMISSION: 05/16/2017 DATE OF DISCHARGE: 05/20/2017 RESIDENT: Ramy Reese D.O. ADMITTING ATTENDING: Dr. Karen Rivas DISCHARGE ATTENDING: Dr. Any Bowser CONSULTATIONS: Dr. Salas of Gastroenterology and Dr. Pretty of Cardiovascular Surgery. PROCEDURES: CT of the abdomen and pelvis showing diverticulosis on 05/16/2017. A brain CT showing n o intracranial process. Abdominal ultrasound, the right upper quadrant showing abnormal heterogeneit y, thickening of the gallbladder wall, although with acknowledgement that gallbladder is contract whi ch limit assessment. Chest x-ray on 05/19/2017 showing cardiomegaly and vascular congestion that improved since previous e xam 3 days prior. Chest x-ray on 05/16/2017 showing cardiomegaly without evidence of acute cardiopul monary process. EGD on 05/18/2017 showing gastric ulcers x3 with gastric erosions, gastritis over the gastric antrum with no active bleeding seen at that time. Colonoscopy 05/18/2017 showing diffuse colonic diverticul ar disease all the way to the hepatic flexure with sessile polyp in each the transverse, the sigmoid colon, and rectum as well as hemorrhoids. PRIMARY DIAGNOSES: 1. Severe symptomatic anemia. 2. High output heart failure. SECONDARY DIAGNOSES: 1. Peripheral vascular disease. 2. Type 2 diabetes. 3. Hyperlipidemia. 4. Hypertension. 5. Depression. 6. Tobacco use. DISCHARGE MEDICATIONS: 1. Ferrous sulfate 325 mg p.o. b.i.d. with meals. 2. Protonix 40 mg p.o. daily. 3. Lasix 40 mg p.o. daily. 4. [place] 1 tab p.o. q.6 hours p.r.n. pain. 5. Simvastatin 40 mg p.o. at bedtime. 6. Sertraline 100 mg p.o. daily. 7. Trazodone 100 mg p.o. at bedtime. 8. Metformin 1000 mg p.o. daily. DISCONTINUED MEDICATIONS: 1. Warfarin 2.5 mg p.o. daily. 2. Eliquis 5 mg p.o. b.i.d. HISTORY OF PRESENT ILLNESS AND HOSPITAL COURSE: The patient is a 67-year-old female who presented to an outside ER with symptoms of syncope. The patient was found to have a hemoglobin at outside ER of 3.0. Therefore, the patient was transferred here for further evaluation. On recheck of hemoglobin, it was 3.5. Therefore the patient was transfused 2 units. On recheck hemoglobin improved to 5.1. The patient was given another 2 units, it improved to 7.1. Throughout the rest of hospitalization th e patient did receive 2 more units of blood to obtain a hemoglobin of 8.1 on the day of discharge [facility] was study from previous night. Initial evaluation involved a consultation with Gastroenterology w zac performed an EGD and colonoscopy on day 3 of hospitalization after a bowel prep. The patient was found to have gastritis and gastric ulcers which was assumed to be the source of the symptoms and low hemoglobin levels. During hospitalization the patient was found to have difficulty maintaining oxygen saturation on room air after walking to the bathroom and other mild exertional activities Gradually over the last 2 da ys of hospitalization the patient was weaned down and had oxygen levels at 93-94% on room air. On th e evening before hospitalization there is suspicion that patient might be having some form of heart f ailure and therefore BNP was performed and found to be elevated at 1534. However, the patient was ev aluated by Dr. Blanchard in the past. In the workup of her history of dyspnea on exertion. An echo was p erformed in 01/2017 and found to have a normal ejection fraction with grade I diastolic failure and t herefore the patient was believed to have high output heart failure due to severe anemia with no furt her workup necessary, and recommendations to follow up in the outpatient setting. Also, of note, the patient did have mild transaminitis. A right upper quadrant ultrasound was performed to evaluate, f indings were nonspecific with recommendations to reevaluation and the gallbladder was more distended. Regarding the patient's history of DVT in left lower extremity and peripheral vascular disease, Card iovascular Surgery was consulted for recommendations on anticoagulation as the patient was on Eliquis prior to admission. With concerns of bleeding Eliquis was held and Dr. Pretty was consulted to see if IVC filter was necessary, appropriate or what sort of anticoagulation the patient should be o n. Recommendations were to hold anticoagulation at this time as risks of bleeding outweigh the benef its. Therefore, the patient was discharged with recommendations to follow up in the outpatient [facility] for further evaluation. In total the patient received 6 units of blood during hospitalization. DISPOSITION: Stable. DISCHARGE INSTRUCTIONS: 1. Location: Home with home health for deconditioning and regaining strength. 2. Diet: Heart healthy, diabetic diet. 3. Activity: No operating heavy machinery for the next 2 days until the patient no longer experienc es dizziness with minimal exertion and recommendations to gradually reintroduce activities. 4. Followup: Follow up with PCP in the next 1-2 weeks as well as follow up with Dr. Blanchard in the nex t 7 days. The patient was also given information about home health PT, OT, and referrals were sent t o the [facility].
== END 2017-05-20 15:17 | disposition home or self-care (01) | DRG 378 ==
LOC: ERS 00:22 → 2SE 02:15 → 2NO 05-18 18:49
PROVIDERS: ADMIT Emergency Medicine; ATTEND Emergency Medicine
PROC: 30233N1 Transfusion of Nonautologous Red Blood Cells into Peripheral Vein, Percutaneous Approach (ICD-10-PCS; 2017-05-16)
PROC: 0DB68ZX Excision of Stomach, Via Natural or Artificial Opening Endoscopic, Diagnostic (ICD-10-PCS; principal; 2017-05-18)
PROC: 0DBP8ZX Excision of Rectum, Via Natural or Artificial Opening Endoscopic, Diagnostic (ICD-10-PCS; 2017-05-18)
PROC: 0DBL8ZX Excision of Transverse Colon, Via Natural or Artificial Opening Endoscopic, Diagnostic (ICD-10-PCS; 2017-05-18)
PROC: 0DBN8ZX Excision of Sigmoid Colon, Via Natural or Artificial Opening Endoscopic, Diagnostic (ICD-10-PCS; 2017-05-18)
DX: K25.4 Chronic or unspecified gastric ulcer with hemorrhage (principal); I24.8 Other forms of acute ischemic heart disease; E11.51 Type 2 diabetes mellitus with diabetic peripheral angiopathy without gangrene; I50.83 High output heart failure; Z68.41 Body mass index [BMI] 40.0-44.9, adult; Z86.718 Personal history of other venous thrombosis and embolism; Z79.01 Long term (current) use of anticoagulants; F32.9 Major depressive disorder, single episode, unspecified; F17.210 Nicotine dependence, cigarettes, uncomplicated; E78.5 Hyperlipidemia, unspecified; I10 Essential (primary) hypertension; Z88.0 Allergy status to penicillin; Z79.84 Long term (current) use of oral hypoglycemic drugs; Z79.82 Long term (current) use of aspirin; R55 Syncope and collapse; D64.9 Anemia, unspecified; K59.00 Constipation, unspecified; R74.0 Nonspecific elevation of levels of transaminase and lactic acid dehydrogenase [LDH]; K57.30 Diverticulosis of large intestine without perforation or abscess without bleeding; K63.5 Polyp of colon; K64.9 Unspecified hemorrhoids; E61.1 Iron deficiency; E66.9 Obesity, unspecified
CPT/HCPCS: 36415; 36416; 36430; 70450; 71045; 71046; 72193; 74170; 76700; 80053; 82274; 82553; 82728; 83540; 83550; 83880; 84443; 84484; 85025; 85046; 85060; 85610; 85730; 86705; 86706; 86709; 86803; 86850; 86900; 86901; 87340; 88305; 88312; 90471; 90670; 93005; 94640; 99406; A4216; G0009; G8978-GP-CI; G8979-GP-CI; G8987-GO-CI; G8988-GO-CI; G8989-GO-CI; J1940; J2001; J2405; J2704; J7620; P9016

== ENCOUNTER 2018-04-26 03:28 | Inpatient (IN) | payer MEDICARE, MEDICAID ==
[2018-04-26] MEDS ORDERED: fentaNYL Citrate/PF 2,000 MCG in Sodium Chloride 0.9% 60 ML IV SCH (03:43)
[2018-04-26] MEDS ORDERED: Norepinephrine 8 MG/0.9% NS 250 ML ONE (03:44)
[2018-04-26 03:51] LABS: Actual Bicarbonate (HCO3a) 16.2 mEq/L (22-28); Analyzer IN Cardio ER; Base Excess (BEa) -13.4 mEq/L (-2.0 to +3.0); CO2 Tension 52.4 mmHg (35.0-45.0); Carboxyhemoglobin (COHb) 0.4 gm% (0.0-3.0); Hemoglobin (Hb) 13.7 g/dL (12.0-16.0); O2 Tension (PaO2) 63.1 mmHg (> 80.0); Potassium - ABG Lab 3.68 mmol/L (3.70-5.30)
[2018-04-26 04:14] LABS: pH, Arterial 7.11 (7.35-7.45)
[2018-04-26 04:15] LABS: Puncture Site LRA
[2018-04-26 04:19] LABS: Bilirubin Negative (Negative); Blood, Urine Large (Negative); Clarity CLOUDY (Clear); Glucose, Urine (Dipstick) 500 mg/dL (Negative); Leukocyte Negative (Negative); Nitrite Negative (Negative); Protein, Urine (Dipstick) 300 mg/dL (Neg-Trace); Specific Gravity, Urine 1.014 (1.002-1.036); Urobilinogen 0.2 mg/dL (0.2-1.0); pH, Urine 6.5 (5.0-9.0)
[2018-04-26 04:22] LABS: Bacteria/HPF None Seen HPF (None Seen); Pathc Cast-AUWi Flag 1.77 (0-2.49); RBC/HPF 21-50 HPF (0-3); Squamous Epithelial 0-3 HPF (0-3)
[2018-04-26 04:31] LABS: Hyaline Casts/LPF 0-3 HYALINE CAST LPF (0-3 Hyaline); Other Casts/LPF 0-3 COARSE GRAN LPF (0-3 Hyaline)
[2018-04-26 05:11] LABS: Hemoglobin 12.6 g/dL (12.0-16.0); Mean Corpuscular Volume 89.9 fL (78.0-98.0); Mean Platelet Volume 8.3 fL (7.4-10.4); Platelet Count 161 thou/uL (130-400); RBC Distribution Width 14.5 % (11.5-14.5); Red Blood Cell (RBC) Count 4.66 mill/uL (4.20-5.40); White Blood Cell (WBC) Count 25.1 thou/uL (4.8-10.8)
[2018-04-26 05:14] LABS: INR-International Normal Ratio 1.5; PTT 41.6 SEC (22.9-36.1); Prothrombin Time 17.9 SEC (12.0-14.7)
[2018-04-26] MEDS ORDERED: Heparin 10,000 UNITS/ 10 ML VIAL SLOW IVP SCH ×2 (05:15→06:46)
[2018-04-26 05:21] LABS: ALT (SGPT) 735 U/L (8-55); AST (SGOT) 1375 U/L (5-34); Alkaline Phosphatase 142 U/L (40-150); Anion Gap 20 mmol/L (10-20); BUN (Urea Nitrogen) 21 mg/dL (9.8-20.1); Bilirubin, Total 0.4 mg/dL (0.2-1.2); Calc. Creatinine Clearance 0 mL/min (70-130); Calcium 7.5 mg/dL (7.8-10.44); Carbon Dioxide 20 mmol/L (23-31); Chloride 103 mmol/L (98-107); Estimated GFR-MDRD 30; Globulin 2.7 g/dL (2.4-3.5); Glucose 439 mg/dL (80-115); Protein, Total 5.7 g/dL (6.0-8.3); Sodium 139 mmol/L (136-145)
--- NOTE | 2018-04-26 05:23 | PDOC.FPRHP ---
- History of Present Illness Chief Complaint: ROSC History of Present Illness: This is a 68 yo female with a pmh of hx of DVTs, HLD, DM2, Depression who presents to the ED from [facility] with ROSC. The following Per EMS/ER report. Pt was experiencing SOB and called EMS. EMS arrived and pt soon after went into cardiac arrest. EMS proceeded to intubate and perform ACLS in the field. Initial rhythm was reportable PEA. Between transport from field to [place] ER and then to [facility], pt underwent over 1 hour of resuscitative measures and 13 rounds of EPI with multiple episodes of ROSC and loss of ROSC. ED Course: Norepinephrine, epinephrine, fentanyl - Allergies/Adverse Reactions Allergies Allergy/AdvReac Type Severity Reaction Status Date / Time Penicillins Allergy Verified 05/16/17 04:01 - Home Medications Medication Instructions Recorded Confirmed Type HYDROcodone Bit/APAP 5/325 [[place]] 1 tab PO Q6HR PRN #0 tab 10/20/13 Rx Sertraline HCl 100 mg PO DAILY 05/16/17 05/16/17 History Simvastatin [Zocor] 40 mg PO HS 05/16/17 05/16/17 History metFORMIN HCl [Metformin HCl] 1,000 mg PO DAILY 05/16/17 05/16/17 History traZODone HCl [Trazodone HCl] 100 mg PO HS 05/16/17 05/16/17 History Ferrous Sulfate [Feosol] 325 mg PO BID-WM #60 tab 05/20/17 Rx Furosemide [Lasix] 40 mg PO DAILY #30 tab 05/20/17 Rx Pantoprazole [Protonix] 40 mg PO DAILY #30 tab 05/20/17 Rx - History PMHx: DVTs, HTN, CHF, HLD, DM2, Depression PSHx: Hysterectomy FHx: unknown Social: Unknown - Review of Systems ROS unobtainable: due to endotracheal tube - Vital signs BP: 97/47 HR: 101 RR: 32 Tmax: 96.1 Pox: 100% on ventilator Wt: 121 kg - Physical Exam Constitutional: other (Intubated) HEENT: MMM, other (pupils pinpoint and reactive) Neck: trachea midline Chest: other (Chest lesions consistent with CPR) Heart: RRR, no murmurs/rubs/gallops Lungs: other (Diffuse wheezing in lung gunter) Abdomen: soft, bowel sounds present Musculoskeletal: normal structure Neurological: other (unable to obtain neuro exam due to sedation) Heme/Lymphatic: other (bruising over left shoulder near IO) FMR H&P: Results - Labs Result Diagrams: 04/26/18 04:56 04/26/18 04:56 Lab results: WBC 25.1 thou/uL (4.8-10.8) H 04/26/18 04:56 Hgb 12.6 g/dL (12.0-16.0) 04/26/18 04:56 Hct 41.9 % (36.0-47.0) 04/26/18 04:56 MCV 89.9 fL (78.0-98.0) 04/26/18 04:56 Plt Count 161 thou/uL (130-400) 04/26/18 04:56 ABG pH 7.11 (7.35-7.45) L* 04/26/18 03:50 ABG pCO2 52.4 mmHg (35.0-45.0) H 04/26/18 03:50 ABG pO2 63.1 mmHg (> 80.0) 04/26/18 03:50 Sodium 139 mmol/L (136-145) 04/26/18 04:56 Potassium 4.0 mmol/L (3.5-5.1) 04/26/18 04:56 Chloride 103 mmol/L (98-107) 04/26/18 04:56 Carbon Dioxide 20 mmol/L (23-31) L 04/26/18 04:56 BUN 21 mg/dL (9.8-20.1) H 04/26/18 04:56 Creatinine 1.71 mg/dL (0.6-1.1) H 04/26/18 04:56 Glucose 439 mg/dL (80-115) H 04/26/18 04:56 Calcium 7.5 mg/dL (7.8-10.44) L 04/26/18 04:56 Total Bilirubin 0.4 mg/dL (0.2-1.2) 04/26/18 04:56 AST 1375 U/L (5-34) H 04/26/18 04:56 ALT 735 U/L (8-55) H 04/26/18 04:56 Alkaline Phosphatase 142 U/L (40-150) 04/26/18 04:56 Serum Total Protein 5.7 g/dL (6.0-8.3) L 04/26/18 04:56 Albumin 3.0 g/dL (3.4-4.8) L 04/26/18 04:56 Urine Ketones Negative mg/dL (Negative) 04/26/18 03:39 Urine Blood Large (Negative) H 04/26/18 03:39 Urine Nitrite Negative (Negative) 04/26/18 03:39 Ur Leukocyte Esterase Negative (Negative) 04/26/18 03:39 Urine RBC 21-50 HPF (0-3) H 04/26/18 03:39 Urine WBC Greater Than 50-TNTC HPF (0-3) H 04/26/18 03:39 Ur Squamous Epith Cells 0-3 HPF (0-3) 04/26/18 03:39 Urine Bacteria None Seen HPF (None Seen) 04/26/18 03:39 - Radiology Interpretation CT scan - chest Status: report reviewed by me (Multiple PE) Other Status: report reviewed by me (Fast US negative) FMR H&P: A/P - Problem List (1) Acute respiratory failure with hypoxia and hypercapnia Current Visit: Yes Status: Acute Code(s): J96.01 - ACUTE RESPIRATORY FAILURE WITH HYPOXIA; J96.02 - ACUTE RESPIRATORY FAILURE WITH HYPERCAPNIA (2) Pulmonary embolism Current Visit: Yes Status: Acute Code(s): I26.99 - OTHER PULMONARY EMBOLISM WITHOUT ACUTE COR PULMONALE - Plan This is a 68 yo female with a pmh of hx of DVTs, HLD, DM2, Depression Acute hypoxic/hypercapnic respiratory failure with cardiac arrest 2/2 large pulmonary embolism -Admit to CCU -Currently on ventilator, attempt to wean down FIO2 -Pt is currently not a candidate for tPA due to trauma from CPR, currently on heparin -Initiate cooling protocol -Continue sedation -Repeat ABG -Currently on levophed and epinephrine. If her pressures decrease, consider dobutamine drip SCARLETT -IVF hydration DVTs -Pt has been off anticoagulation due to previous GI bleed -No IVC filter HLD -Hold home meds DM2 -Elevated BG, plan to titrate long acting insulin to control between 140-180 -Accuchecks, SSI Code: currently Full, attempt to discuss further with family Prophylaxis: pepcid Family: none at bedside Disposition: Guarded FMR H&P: Upper Level - Pertinent history 68F presenting to [facility] s/p ROSC in the field and at [place] ED. EMS was called due to SOB. Upon arrival, patient became unresponsive. She was intubated and compressions were started. ROSC achieved en route, but she quickly coded again. ROSC definitively achieved at [place] ED. In total, code time was approximately 60 minutes. Patient was then found to be hypotensive. Right femoral CVC placed and patient was started on levophed gtt and epinephrine gtt. She is currently on fentanyl sedation and undergoing targeted temperature management. - Pertinent findings CT dissection showing multiple pulmonary emboli AB.11/52/63, bicarb= 16 WBC: 25 INR: 1.5 D-dimer: >20 BUN/Cr: 21/1.71 Glu: 439 LA: 8.9 AST/ALT: 1375/735 BNP: 290 trop: .073->0.73 112/68 mmHg 105 bpm 22RR 96.6F - Plan Date/Time: 04/26/18 0523 ISage, have evaluated this patient and agree with findings/plan as outlined by internet systems administrator resident. Pertinent changes/additions are listed here. Cardiac arrest 2/2 likely PEA: s/p ROSC currently on levophed gtt and epinephrine gtt. Vitals signs are stable at the moment. Admit to CCU. Failed attempt at arterial line in ED Acute hypoxic hypercapneic respiratory failure 2/2 likely PEA: repeat ABG pending. Currently on vent with fentanyl sedation. Pulmonology, Dr. Domínguez, consulted for further management. Will await official read of scans. 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 She was admitted for syncope 2/2 to symptomatic anemia with hemoglobin of 3.5 2/2 UGIB in May 2017. At that time, her Eliquis was discontinued after evaluation by CV surgery who felt old DVTs had likely been recannulized and that risks outweighed the benefits for anticoagulation. No IVC filter was placed at that time. It is unknown if patient complied with f/u in the OP setting and whether or not her AC was restarted at some point. We will speak with PCP, Dr. Heath, to confirm this history.
[2018-04-26 05:43] LABS: Band 15 % (5-11); Lymphocytes 8 % (21-51); MDiff Complete? YES; Monocytes 4 % (0-10); Neutrophil 73 % (42-75)
[2018-04-26] MEDS ORDERED: Fentanyl CADD 250 ML IVPB SCH (05:55)
[2018-04-26] MEDS ORDERED: Propofol BOLUS 1,000 MG/100 ML VIAL IV PRN (05:55)
[2018-04-26] MEDS ORDERED: Fentanyl BOLUS 250 ML IVPB PRN (05:55)
[2018-04-26] MEDS ORDERED: Morphine 2 MG/ML SYRINGE SLOW IVP PRN (05:55)
[2018-04-26] MEDS ORDERED: DISCONTINUE PREVIOUS NARCOTIC PAIN MEDICATIONS AND BENZODIAZEPINES FS SCH (05:55)
[2018-04-26] MEDS ORDERED: Lorazepam 2 MG/ML VIAL SLOW IVP PRN (05:55)
[2018-04-26] MEDS ORDERED: Potassium Phosphate 30 MMOL in Sodium Chloride 0.9% 500 ML IVPB SCH (06:15)
[2018-04-26 06:17] LABS: CKMB 16.1 ng/mL (0-6.6)
[2018-04-26] MEDS ORDERED: NS 0.9% w/ 40 MEQ KCL 1,000 ML IV SCH (06:30)
[2018-04-26] MEDS ORDERED: Heparin 25,000 units/D5W 500 ML IVPB SCH (06:46)
[2018-04-26 07:16] VITALS: BMI 40.9
[2018-04-26] MEDS ORDERED: Norepinephrine 8 MG/0.9% NS 250 ML IVPB SCH (07:30)
[2018-04-26 07:33] LABS: Actual Bicarbonate (HCO3a) 19.8 mEq/L (22-28); Base Excess (BEa) -10.8 mEq/L (-2.0 to +3.0); Carboxyhemoglobin (COHb) 1.1 gm% (0.0-3.0); Hemoglobin (Hb) 15.8 g/dL (12.0-16.0); O2 Tension (PaO2) 137.7 mmHg (> 80.0); Potassium - ABG Lab 3.86 mmol/L (3.70-5.30)
[2018-04-26 07:34] LABS: pH, Arterial 7.11 (7.35-7.45)
[2018-04-26 07:35] LABS: Peep/CPAP 7.5 cmH2O; Puncture Site RR
[2018-04-26] MEDS: Sodium Chloride 0.9% 1,000 ML IV SCH ×2 (07:54→16:43)
[2018-04-26] MEDS ORDERED: Vecuronium 10 MG VIAL IV PRN (08:15)
[2018-04-26] MEDS ORDERED: Dextrose 5% in Water 1,000 ML IV PRN (08:43)
[2018-04-26] MEDS ORDERED: HumaLOG 300 UNITS/3 ML VIAL SC PRN (08:43)
[2018-04-26] MEDS ORDERED: Dextrose 50% Abboject 50 ML SYRINGE SLOW IVP PRN (08:43)
--- NOTE | 2018-04-26 08:55 | RAD ---
CHEST 1 VIEW: Date: 04/26/18 HISTORY: Chest pain. COMPARISON: Radiograph of same day. FINDINGS: Multifocal air space opacities throughout the lungs, new from the comparison examination. Enteric tub e is in place, tip not well seen due to poor penetration. It is possible that the tip is in the mid e sophagus. Endotracheal tube tip is in good position. IMPRESSION: 1. New extensive air space opacities, likely edema. Aspiration felt less likely. 2. Enteric tube tip not well seen, although may be at the mid thoracic esophagus. Advancement recomm ended. POS: [facility]
--- NOTE | 2018-04-26 09:00 | CT ---
PRELIMINARY REPORT/[facility]/EMERGENTY AFTER-HOURS PROCEDURE CT Angiography Chest With Contrast EXAM DATE/TIME: 04/26/2018 4:39 AM CLINICAL HISTORY: 68 years old, female; Condition or disease; Cardiovascular condition or disease; Other: Heart attack; Other: Heart stopped; Patient HX: F68 presents to ed as transfer from [place] [facility]. Ems reports i nitial call for shortness of breath and reports PT coded in front of ems who then started cpr. Ems re ports they were able to get pulses back but reports PT intermittently lost pulse about every 5 minute s. Ems reports PT is currently intubated and on an epi drip and reports PT did not need cpr on the way here. TECHNIQUE: Axial computed tomographic angiography images of the chest with intravenous contrast using CT angiogr aphy protocol. MIP reconstructed images were created and reviewed. COMPARISON: No relevant prior studies available. FINDINGS: Tubes, catheters and devices: Endotracheal and orogastric tubes are present in satisfactory position. Pulmonary arteries: There are filling defects within the distal main RIGHT and LEFT pulmonary arterie s and upper and lower lobe segments consistent with extensive pulmonary emboli. Aorta: Normal. No aortic aneurysm. No aortic dissection. Lungs: There is bilateral superior lung and dependent opacification with interlobular septal thickeni ng consistent with moderate pulmonary edema/atelectasis. Pleural space: Normal. No pneumothorax. No pleural effusion. Heart: RV LV ratio measures approximately 0.9-1 which is within normal limits. Lymph nodes: Unremarkable. No enlarged lymph nodes. Bones/joints: There are numerous bilateral acute mildly displaced anterior rib fractures, presumably from cardiac resuscitation. Soft tissues: Unremarkable. IMPRESSION: 1. Extensive acute bilateral pulmonary emboli. Normal RV LV ratio. 2. Moderate lung atelectasis/edema. THIS REPORT CONTAINS FINDINGS THAT MAY BE CRITICAL TO PATIENT CARE. The findings were verbally commun icated via telephone conference with REEMA PELAYO at 5:11 AM WOOD BUCKER on 04/26/2018. The findings were acknowledged and understood. CT Angiography Abdomen With Contrast EXAM DATE/TIME: 04/26/2018 4:39 AM CLINICAL HISTORY: 68 years old, female; Condition or disease; Cardiovascular condition or disease; Other: Heart attack; Other: Heart stopped; Patient HX: F68 presents to ed as transfer from [place] [facility]. Ems reports i nitial call for shortness of breath and reports PT coded in front of ems who then started cpr. Ems re ports they were able to get pulses back but reports PT intermittently lost pulse about every 5 minute s. Ems reports PT is currently intubated and on an epi drip and reports PT did not need cpr on the wa y here. TECHNIQUE: Axial computed tomographic angiography images of the abdomen with intravenous contrast material, incl uding non-contrast images if performed. MIP and/or 3D reconstructed images were created and reviewed. MIP reconstructed images were created and reviewed. COMPARISON: No relevant prior studies available. FINDINGS: Tubes, catheters and devices: A nasogastric tube lies with its tip in the stomach. Lungs: Unremarkable. No consolidation. VASCULATURE: Aorta: The aorta demonstrates mild atherosclerotic calcification. Celiac trunk and mesenteric arteries: There is mild atherosclerotic calcification at the origin of th gera celiac artery sulci and mild stenosis. SMA is patent. Renal arteries: No occlusion or significant stenosis. Hepatic veins: There is reflux of contrast into the hepatic veins and IVC. ABDOMEN: Liver: There are no focal liver lesions identified. Gallbladder and bile ducts: There may be vicarious excretion of contrast in the gallbladder. Pancreas: The pancreas appears normal. No ductal dilatation. Spleen: The spleen is normal. Adrenals: Normal. No mass. Kidneys and ureters: The kidneys appear normal. No hydronephrosis. Stomach and bowel: Unremarkable. No obstruction. No mucosal thickening. Intraperitoneal space: There is trace RIGHT upper quadrant ascites. Bones/joints: Unremarkable. No acute fracture. No dislocation. Soft tissues: There is a fat-containing umbilical hernia. Lymph nodes: Unremarkable. No enlarged lymph nodes. IMPRESSION: No acute abdominopelvic pathology. Thank you for allowing us to participate in the care of your patient. Dictated and Authenticated by: Gonzales Cardoso MD 04/26/2018 5:16 AM Central Time ([place] & [place]) FINAL REPORT CT ANGIOGRAM OF THE CHEST WITH IV CONTRAST AND 3D POSTPROCESSING CT ANGIOGRAM OF THE ABDOMEN WITH IV CONTRAST AND 3D POSTPROCESSING: Date: 04/26/18 FINDINGS/IMPRESSION: I agree with the preliminary report given by [facility]. POS: OFF
--- NOTE | 2018-04-26 09:02 | CT ---
PRELIMINARY REPORT/[facility]/EMERGENTY AFTER-HOURS PROCEDURE CT Head Without Contrast EXAM DATE/TIME: 04/26/2018 4:33 AM CLINICAL HISTORY: 68 years old, female; Signs and symptoms; Other: Heart stopped; Patient HX: F68 presents to ed as tra nsfer from [place] [facility]. Ems reports initial call for shortness of breath and reports PT coded in front of ems who then started cpr. Ems reports they were able to get pulses back but reports PT intermittently lost pulse about every 5 minutes. Ems reports PT is currently intubated and on an epi drip and reports PT did not need cpr on the way here. TECHNIQUE: Axial computed tomography images of the head/brain without contrast. COMPARISON: No relevant prior studies available. FINDINGS: Tubes, catheters and devices: Endotracheal and orogastric tubes are noted. Brain: Normal. No hemorrhage. No significant white matter disease. No edema. Ventricles: Normal. No ventriculomegaly. Bones/joints: Normal. No acute fracture. Sinuses: Normal as visualized. No acute sinusitis. Mastoid air cells: Normal as visualized. No mastoid effusion. Soft tissues: Normal. IMPRESSION: No acute intracranial hemorrhage. Thank you for allowing us to participate in the care of your patient. Dictated and Authenticated by: Gonzales Cardoso MD 04/26/2018 5:05 AM Central Time ([place] & [place]) FINAL REPORT CT BRAIN WITHOUT CONTRAST: Date: 04/26/18 FINDINGS/IMPRESSION: I agree with the preliminary report given by [facility]. POS: OFF
[2018-04-26] MEDS: Heparin 25,000 units/D5W 500 ML IV SCH (09:10)
[2018-04-26] MEDS: Insulin Glargine 10 UNITS in Pre-Filled Syringe 1 EACH SC SCH (09:28)
[2018-04-26 10:30] LABS: Hemoglobin 13.3 g/dL (12.0-16.0); Mean Corpuscular HGB CONC 30.3 g/dL (32.0-36.0); Mean Corpuscular Volume 89.1 fL (78.0-98.0); Platelet Count 168 thou/uL (130-400); RBC Distribution Width 14.6 % (11.5-14.5); Red Blood Cell (RBC) Count 4.93 mill/uL (4.20-5.40); White Blood Cell (WBC) Count 27.1 thou/uL (4.8-10.8)
[2018-04-26 10:39] LABS: INR-International Normal Ratio 1.3; Prothrombin Time 16.7 SEC (12.0-14.7)
[2018-04-26 10:40] LABS: PTT 72.2 SEC (22.9-36.1)
[2018-04-26 10:47] LABS: Anion Gap 21 mmol/L (10-20); BUN (Urea Nitrogen) 24 mg/dL (9.8-20.1); Calc. Creatinine Clearance 48 mL/min (70-130); Calcium 7.7 mg/dL (7.8-10.44); Carbon Dioxide 18 mmol/L (23-31); Chloride 105 mmol/L (98-107); Estimated GFR-MDRD 25; Glucose 250 mg/dL (80-115); Magnesium 2.1 mg/dL (1.6-2.6); Phosphorus 8.2 mg/dL (2.3-4.7); Sodium 140 mmol/L (136-145)
[2018-04-26 10:56] LABS: Band 25 % (5-11); Eosinophils 1 % (0-10); Lymphocytes 4 % (21-51); MDiff Complete? YES; Monocytes 5 % (0-10); Neutrophil 64 % (42-75); RBC Morphology Normal; Reactive Lymphocytes 1 % (0-10)
[2018-04-26 10:58] LABS: CKMB 31.1 ng/mL (0-6.6); Lactic Acid 7.3 mmol/L (0.5-2.2); Troponin I 2.264 ng/mL (< 0.028)
[2018-04-26] MEDS ORDERED: EPINEPHrine 1 MG/10 ML Abboject SYRINGE ONE (11:11)
[2018-04-26] MEDS: HumaLOG 300 UNITS/3 ML VIAL SC PRN ×2 (11:12→15:10)
--- NOTE | 2018-04-26 11:17 | CON ---
DATE OF CONSULTATION: 04/26/2018 SERVICE: Pulmonary Medicine. REASON FOR CONSULTATION: Shock. HISTORY OF PRESENT ILLNESS: The patient is a very unfortunate 68-year-old white female with past medical history significant for multiple episodes of venothromboembolic disease. Ultimately, she had a bleeding event last year. It was a severe bleeding event and her anticoagulation was interrupted. Either way, she was in her usual state of health until she had an abrupt onset of shortness of breath. She called 911 for transportation to the emergency room. By the time EMS Services got there, she was down. She was pulseless and chest compressions were initiated. Over an hour, she lost her pulse over 5 times. Ultimately, she was sent to the CT scan, which confirmed her pulmonary embolism. She cannot provide any additional elements of the history at this point. Family tells me that they saw her recently and she was in her usual state of health. PAST MEDICAL HISTORY: 1. Venothromboembolic disease, recurrent. 2. Hypertension. 3. Dyslipidemia. 4. Type 2 diabetes mellitus. 5. Major depressive disorder. 6. Congestive heart failure. PAST SURGICAL HISTORY: Hysterectomy. FAMILY HISTORY: Unknown. SOCIAL HISTORY: Unknown. ALLERGIES: PENICILLIN. MEDICATIONS: List of her inpatient medications was reviewed. Multiple updates were made. REVIEW OF SYSTEMS: This cannot be obtained as the patient is currently encephalopathic. PHYSICAL EXAMINATION: VITAL SIGNS: Afebrile. Currently, she is part of the cooling protocol and she is hypothermic to 96 degrees Fahrenheit and we are getting closer to goal. Pulse 96, blood pressure 114/71 on 2 separate pressors, respirations 14, and saturation 100% on 75% FiO2 and a PEEP of 5. GENERAL: The patient is intubated. She is on a little bit of pain medication, but no sedating medications are required. HEENT: Normocephalic and atraumatic. Sclerae are white. Conjunctivae are pink. Oral mucosa is moist without lesions. LUNGS: Decent air entry. Rhonchi are present. There is a slightly prolonged expiratory phase, but no wheezing or crackles are appreciated. HEART: Normal rate, regular. ABDOMEN: Soft, nontender, and nondistended. Bowel sounds are positive. MUSCULOSKELETAL: No cyanosis or clubbing. No pitting in the bilateral lower extremities. NEUROLOGIC: She is overbreathing in the ventilator. She has pupils that are round and very sluggishly reactive. She does not withdraw from noxious stimuli in all 4 extremities. She does not demonstrate any posturing at this point. Babinski are neutral. LABORATORY DATA: WBC 25.1, hemoglobin 12.6, and platelets 161,000. Band count is 15% on top of 73% neutrophils. INR 1.5. A pH of 7.11, pCO2 of 64, and pO2 of 137. Creatinine 1.71 and uptrending. AST 1375 and ALT 735. Troponin 0.7 and BNP 290. TSH falls within the normal limits. Magnesium 2.2. Lactate is 8.9. Basic metabolic profile is otherwise unremarkable. Urinalysis is positive for white blood cells. There is glycosuria as well as proteinuria present. IMAGING: CT of the brain demonstrates no acute intracranial abnormality. CT dissection protocol demonstrates no evidence of dissection, but there is an extensive bilateral pulmonary emboli present. Normal RV to LV ratio at this point suggesting no significant right ventricular distention currently. Atelectasis and/or edema versus early infiltrate is present. Endotracheal tube is in good position. ASSESSMENT: 1. Pulseless electrical activity arrest, status post return of circulation following 1 hour of cardiopulmonary resuscitation. 2. Acute hypoxic respiratory failure. 3. Acute kidney injury. 4. Shock liver. 5. Acute pulmonary embolism. 6. Anion gap metabolic acidosis, severe. 7. Multisystem organ dysfunction. 8. Anoxic brain injury, suspected. DISCUSSION AND PLAN: We will support the patient with pressors. As she clears her acidosis, she should come off these fairly easily. She is not currently a candidate for tPA given her prolonged chest compressions. Agree with heparin drip, which will be continued. Pulmonary/Critical Care will continue to follow very closely while the patient remains in the hospital. She is on the cooling protocol currently. Once we rewarm her, we will be able to hold sedation and see what type of neurologic injury she has sustained. Family has been updated at bedside. They are aware of the situation how severe it is. We will continue to follow her electrolytes and blood studies through time. At this point; however, supportive measures are the only thing that are indicated here while we see what falls out. CRITICAL CARE TIME: 50 minutes. Job ID: [id number]
--- NOTE | 2018-04-26 11:56 | PRG ---
DATE OF SERVICE: 04/26/2018 This is an addendum to the note of Dr. Selene Julian. Ms. Vo is a very unfortunate 68-year-old white female patient, who had a prolonged cardiac arrest outside the hospital. She is currently comatose on a ventilator with extremely poor prognosis. She is also being followed by the Critical Care Team with Dr. Domínguez. Her most recent blood gas shows extremely poor prognosis with a pH of 7.11, pCO2 of 64, pO2 of 137, and bicarbonate of 19.8. We will follow the patient with the Critical Care Team. Prognosis as stated above is extremely poor. Job ID: [id number]
[2018-04-26] MEDS ORDERED: Magnesium 5 GM/10 ML Abboject SYRINGE ONE (14:16)
[2018-04-26] MEDS ORDERED: Lidocaine 2% PF 100 mg/5 ml Syringe ONE (14:16)
[2018-04-26] MEDS: Propofol 1,000 MG/100 ML VIAL IV PRN (15:22)
[2018-04-26 16:03] LABS: INR-International Normal Ratio 1.3; Prothrombin Time 16.4 SEC (12.0-14.7)
[2018-04-26 16:18] LABS: Anion Gap 20 mmol/L (10-20); BUN (Urea Nitrogen) 25 mg/dL (9.8-20.1); Calc. Creatinine Clearance 46 mL/min (70-130); Calcium 7.5 mg/dL (7.8-10.44); Carbon Dioxide 19 mmol/L (23-31); Chloride 106 mmol/L (98-107); Estimated GFR-MDRD 24; Glucose 180 mg/dL (80-115); Magnesium 2.1 mg/dL (1.6-2.6); PTT Greater than 250.0 SEC (22.9-36.1); Phosphorus 8.8 mg/dL (2.3-4.7); Potassium 5.2 mmol/L (3.5-5.1); Sodium 140 mmol/L (136-145)
[2018-04-26 16:27] LABS: Band 12 % (5-11); Hemoglobin 12.7 g/dL (12.0-16.0); Hypochromia SLIGHT = 6-15 cells (100X) (0-5/hpf); Lymphocytes 2 % (21-51); MDiff Complete? YES; Mean Corpuscular HGB CONC 30.2 g/dL (32.0-36.0); Mean Corpuscular Hemoglobin 26.4 pg (27.0-31.0); Mean Corpuscular Volume 87.5 fL (78.0-98.0); Mean Platelet Volume 10.1 fL (7.4-10.4); Monocytes 1 % (0-10); Neutrophil 85 % (42-75); PLT Morphology Comment Appears Adequate; Platelet Count 145 thou/uL (130-400); RBC Distribution Width 14.6 % (11.5-14.5); White Blood Cell (WBC) Count 23.2 thou/uL (4.8-10.8)
[2018-04-26] MEDS ORDERED: ISOVUE-370 76%-LOCM 1 ML ONE (16:37)
[2018-04-26 16:48] LABS: CKMB 38.1 ng/mL (0-6.6)
[2018-04-26] MEDS ORDERED: Tenecteplase 50 MG - STEMI KIT ONE (17:28)
[2018-04-26] MEDS: Sodium Bicarbonate 100 MEQ in Dextrose 5% in Water 1,000 ML IV SCH (18:00)
[2018-04-26 18:15] LABS: PTT 155.4 SEC (22.9-36.1)
[2018-04-26 21:10] LABS: INR-International Normal Ratio 1.1; Prothrombin Time 14.2 SEC (12.0-14.7)
[2018-04-26 21:11] LABS: PTT 48.1 SEC (22.9-36.1)
[2018-04-26 22:43] LABS: Anion Gap 17 mmol/L (10-20); BUN (Urea Nitrogen) 27 mg/dL (9.8-20.1); Calc. Creatinine Clearance 43 mL/min (70-130); Calcium 7.5 mg/dL (7.8-10.44); Carbon Dioxide 23 mmol/L (23-31); Chloride 104 mmol/L (98-107); Estimated GFR-MDRD 22; Glucose 150 mg/dL (80-115); Phosphorus 7.6 mg/dL (2.3-4.7); Sodium 139 mmol/L (136-145)
[2018-04-26 22:45] LABS: Band 24 % (5-11); Lymphocytes 6 % (21-51); MDiff Complete? YES; Mean Corpuscular HGB CONC 30.9 g/dL (32.0-36.0); Mean Corpuscular Volume 87.2 fL (78.0-98.0); Mean Platelet Volume 9.4 fL (7.4-10.4); Neutrophil 70 % (42-75); Platelet Count 125 thou/uL (130-400); RBC Distribution Width 14.4 % (11.5-14.5); Red Blood Cell (RBC) Count 4.81 mill/uL (4.20-5.40)
[2018-04-26 22:51] LABS: Critical Call Chem Troponin I RESULT DECREASING
[2018-04-26 23:17] LABS: CKMB 37.9 ng/mL (0-6.6); Critical Call CKMB RESULT DECREASING
[2018-04-27] MEDS: Propofol 1,000 MG/100 ML VIAL IV PRN (02:02)
[2018-04-27 04:36] LABS: INR-International Normal Ratio 1.1; Prothrombin Time 14.4 SEC (12.0-14.7)
[2018-04-27 04:40] LABS: #Lymphocytes 1.5 thou/uL (1.20-3.40); #Monocytes 0.7 thou/uL (0.11-0.59); %Basophils 0.1 % (0.0-1.0); %Eosinophils 0.1 % (0.0-10.0); %Lymphocytes 6.8 % (21.0-51.0); %Monocytes 3.1 % (0.0-10.0); %Neutrophils 89.9 % (42.0-75.0); Hemoglobin 13.2 g/dL (12.0-16.0); Mean Corpuscular Hemoglobin 26.8 pg (27.0-31.0); Mean Corpuscular Volume 86.7 fL (78.0-98.0); Mean Platelet Volume 9.6 fL (7.4-10.4); Platelet Count 118 thou/uL (130-400); RBC Distribution Width 14.4 % (11.5-14.5); Red Blood Cell (RBC) Count 4.93 mill/uL (4.20-5.40); White Blood Cell (WBC) Count 21.2 thou/uL (4.8-10.8)
[2018-04-27 04:51] LABS: ALT (SGPT) 631 U/L (8-55); AST (SGOT) 576 U/L (5-34); Albumin 3.5 g/dL (3.4-4.8); Alkaline Phosphatase 135 U/L (40-150); Bilirubin, Direct 0.2 mg/dL (0.1-0.3); Bilirubin, Total 0.3 mg/dL (0.2-1.2); Protein, Total 6.9 g/dL (6.0-8.3)
[2018-04-27 04:53] LABS: Anion Gap 19 mmol/L (10-20); BUN (Urea Nitrogen) 28 mg/dL (9.8-20.1); Calc. Creatinine Clearance 40 mL/min (70-130); Calcium 7.8 mg/dL (7.8-10.44); Carbon Dioxide 25 mmol/L (23-31); Chloride 102 mmol/L (98-107); Estimated GFR-MDRD 20; Glucose 163 mg/dL (80-115); Magnesium 1.9 mg/dL (1.6-2.6); Phosphorus 7.2 mg/dL (2.3-4.7); Potassium 4.5 mmol/L (3.5-5.1); Sodium 141 mmol/L (136-145)
[2018-04-27] MEDS: Sodium Bicarbonate 100 MEQ in Dextrose 5% in Water 1,000 ML IV SCH (05:00)
[2018-04-27 05:07] LABS: Critical Call Chem Troponin I RESULT DECREASING
[2018-04-27] MEDS: Heparin 25,000 units/D5W 500 ML IV SCH (05:16)
[2018-04-27] MEDS ORDERED: hydrALAZINE 20 MG/ML VIAL ONE (05:19)
[2018-04-27] MEDS: hydrALAZINE 20 MG/ML VIAL SLOW IVP PRN ×3 (05:20→07:39)
[2018-04-27 05:30] LABS: PTT 141.4 SEC (22.9-36.1)
[2018-04-27 05:33] LABS: CKMB 43.5 ng/mL (0-6.6)
[2018-04-27 08:06] LABS: Anion Gap 19 mmol/L (10-20); BUN (Urea Nitrogen) 29 mg/dL (9.8-20.1); Calc. Creatinine Clearance 45 mL/min (70-130); Calcium 7.8 mg/dL (7.8-10.44); Carbon Dioxide 23 mmol/L (23-31); Chloride 100 mmol/L (98-107); Estimated GFR-MDRD 23; Glucose 188 mg/dL (80-115); Magnesium 1.7 mg/dL (1.6-2.6); Potassium 3.8 mmol/L (3.5-5.1); Sodium 138 mmol/L (136-145)
[2018-04-27] MEDS ORDERED: Magnesium Sulfate 2 GM in Sodium Chloride 0.9% 100 ML IVPB SCH (08:30)
--- NOTE | 2018-04-27 08:34 | PDOC.FM ---
- Subjective Subjective: Patient seen at bedside this morning. She remains unresponsive to voice or pain. She is currently requiring propofol for sedation to keep her for overbreathing the vent. No acute events or problems over night. - Objective MAR Reviewed: Yes Vital Signs & Weight: Vital Signs (12 hours) Temp Pulse Resp BP 04/27/18 07:39 67 173/104 H 04/27/18 07:15 17 04/27/18 07:00 90.7 F L 04/27/18 06:15 70 162/104 H 04/27/18 06:12 69 158/98 H 04/27/18 06:00 89.7 F L 23 H 04/27/18 05:20 63 188/127 H 04/27/18 05:00 89.6 F L 04/27/18 04:00 90.8 F L 21 H 04/27/18 03:00 91.4 F L 04/27/18 02:00 92.9 F L 19 04/27/18 01:00 93.3 F L 04/27/18 00:00 93.4 F L 23 H 04/26/18 23:00 93.0 F L 04/26/18 22:00 93.2 F L 19 04/26/18 21:00 93.1 F L Weight Admit Weight 111.6 kg Weight 114.5 kg Most Recent Monitor Data Heart Rate from ECG 67 NIBP 121/72 NIBP BP-Mean 88 Respiration from ECG 17 SpO2 100 I&O: 04/26/18 04/27/18 04/28/18 06:59 06:59 06:59 Intake Total 3777.6 Output Total 45 910 150 Balance -45 2867.6 -150 Result Diagrams: 04/27/18 04:15 04/27/18 07:37 Phys Exam - Physical Examination Sedated and intubated HEENT: moist MMs, sclera anicteric Pupils 2mm and sluggish Respiratory: clear to auscultation bilateral Cardiovascular: RRR, no significant murmur Pedal pulses strong b/l Gastrointestinal: no distention, positive bowel sounds Musculoskeletal: no edema GCS 3T Deviation from normal: Feet are cyanotic with petechiae Dx/Plan (1) Acute respiratory failure with hypoxia and hypercapnia Code(s): J96.01 - ACUTE RESPIRATORY FAILURE WITH HYPOXIA; J96.02 - ACUTE RESPIRATORY FAILURE WITH HYPERCAPNIA Status: Acute (2) Pulmonary embolism Code(s): I26.99 - OTHER PULMONARY EMBOLISM WITHOUT ACUTE COR PULMONALE Status : Acute (3) SCARLETT (acute kidney injury) Code(s): N17.9 - ACUTE KIDNEY FAILURE, UNSPECIFIED Status: Acute (4) Elevated troponin Code(s): R74.8 - ABNORMAL LEVELS OF OTHER SERUM ENZYMES Status: Acute (5) DM type 2 (diabetes mellitus, type 2) Status: Chronic (6) HTN (hypertension) Code(s): I10 - ESSENTIAL (PRIMARY) HYPERTENSION Status: Chronic (7) Transaminitis Code(s): R74.0 - NONSPEC ELEV OF LEVELS OF TRANSAMNS & LACTIC ACID DEHYDRGNSE Status: Acute - Plan Plan: 1. Acute hypoxic respiratory failure secondary to PE - Patient remains at GCS of 3T with no improvement, however has become more hemodynamically stable and no longer requiring levophed - She will take spontaneous breaths, however becomes asynchronous with the vent , thus is requiring propofol at this time. - Prognosis at this time is very poor given that she was down for 1 hour before ROSC 2. PE - pt has been on heparin, however that was dc'd following high PTT. - will recheck and start again when PTT becomes therapeutic 3. SCARLETT - UOP has improved to 30-50 mL/hr - Cr is improving. Continue IVF and monitor with am labs 4. DM2 - Sugar is reasonably well controlled. - SSI prn - accucheck q4. Currently on dextrose containing fluid 5. HTN - pressure has started to creep up as she no longer requires levophed and did need 1 dose of IV hydralazine. - Continue to monitor and give PRN BP meds 6. Transaminitis - improving. Likely related to poor perfusion during code - monitor in am 7. Elevated trop - related to CPR, EKG not c/w NC Dispo: very poor prognosis. Plan to discuss terminal operator plans with family today. Will consult palliative for goals of care.
[2018-04-27] MEDS ORDERED: Magnesium 2 GM/50 ML 2 GM in Premix Bag 1 BAG IVPB SCH (08:45)
[2018-04-27 09:00] LABS: Actual Bicarbonate (HCO3a) 25.1 mEq/L (22-28); Base Excess (BEa) -1.4 mEq/L (-2.0 to +3.0); CO2 Tension 48.8 mmHg (35.0-45.0); Calcium, Ionized 0.97 mmol/L (1.12-1.30); Carboxyhemoglobin (COHb) 1.2 gm% (0.0-3.0); Hemoglobin (Hb) 14.6 g/dL (12.0-16.0); Potassium - ABG Lab 3.48 mmol/L (3.70-5.30); pH, Arterial 7.33 (7.35-7.45)
--- NOTE | 2018-04-27 09:00 | PRG ---
DATE OF SERVICE: 04/27/2018 SERVICE: Pulmonary Medicine. INTERVAL HISTORY: The patient is doing okay from a respiratory standpoint. She is tolerating a very low-pressure support ventilation. Overnight, she had some hypertensive events. As a result, she got some hydralazine. Her blood pressure is under better control today. She is currently on propofol and fentanyl. She appears to be relaxed. PHYSICAL EXAMINATION: VITAL SIGNS: Afebrile, pulse 67, blood pressure 121/72, respirations 12, and saturation 94% on 41% FiO2 and a PEEP of 5. GENERAL: The patient is intubated and sedated. HEENT: Normocephalic and atraumatic. Sclerae are white. Conjunctivae are pink. Oral and nasal mucosa is moist without lesions. LUNGS: Excellent air entry. There is no prolonged expiratory phase. I do not hear any rhonchi or crackles. HEART: Normal rate, regular. ABDOMEN: Soft, nontender, and nondistended. Bowel sounds are positive. MUSCULOSKELETAL: No cyanosis or clubbing. There is trace pitting in bilateral lower extremities. NEUROLOGIC: Grossly nonfocal. Pupils were nonreactive for me. She does not withdraw from noxious stimuli in the upper or lower extremities currently. She did not cough with deep suctioning. LABORATORY DATA: WBC 21.2, hemoglobin 13.2, and platelets 118,000 and downtrending. PTT 52.1. PH 7.11, pCO2 of 64, and pO2 of 137. Creatinine 2.16. Basic metabolic profile is otherwise unremarkable. Phosphorus 6.0, magnesium 1.7. Troponin 1.3 and up-trending. ASSESSMENT: 1. Acute hypoxic respiratory failure. 2. Acute pulmonary embolism, massive. 3. Pulseless electrical activity, status post return of circulation after 1 hour of CPR. 4. Acute kidney injury, resolved. 5. Shock liver, mild. 6. Anion gap metabolic acidosis, improved. 7. Anoxic brain injury, possible. DISCUSSION AND PLAN: We will continue our supportive care. We are rewarming the patient. After the patient is warm, we will hold sedation and see whether or not she has any functional neurologic activity. I will continue to support at least for the next 24 to 48 hours before we come to any conclusion about her underlying neurologic status unless the neurologic exam is suggestive of brain , which is currently not. She will remain in the ICU. CRITICAL CARE TIME: 30 minutes. Job ID: [id number]
[2018-04-27 09:01] LABS: O2 Tension (PaO2) 59.4 mmHg (> 80.0); Puncture Site RR
[2018-04-27] MEDS: Sodium Chloride 0.45% 1,000 ML IV SCH ×2 (09:05→22:06)
[2018-04-27] MEDS: Insulin Glargine 10 UNITS in Pre-Filled Syringe 1 EACH SC SCH ×2 (09:06→12:58)
[2018-04-27] MEDS ORDERED: Calcium Gluconate 4.6 MEQ in Sodium Chloride 0.9% 100 ML IVPB ONE (09:17)
[2018-04-27] MEDS: Norepinephrine 8 MG/0.9% NS 250 ML IVPB SCH ×2 (09:20→20:04)
[2018-04-27] MEDS ORDERED: Lactated Ringer's 1,000 ML IV SCH (09:30)
[2018-04-27] MEDS: EPINEPHrine 4 MG in Dextrose 5% in Water 250 ML IV SCH ×2 (09:34→20:05)
--- NOTE | 2018-04-27 10:13 | PRG ---
DATE OF SERVICE: 04/27/2018 This is an addendum to the note of Dr. Orion Carvajal. Ms. Vo is still sedated on the ventilator. We are in the rewarming process. We are going to continue with ventilatory and other supports for at least the next 48 hours before making the determination about brain activity. The patient is also in attendance by Dr. Domínguez. We certainly appreciate his input as well. ABG has improved with pH now of 7.33, a pCO2 of 48.8, and O2 of 59.4. Current blood pressure is 120/70 with a MAP of 88. Prognosis is overall poor and guarded, but will await rewarming process and reassess neurologic status within about 48 hours. Job ID: [id number]
[2018-04-27] MEDS: HumaLOG 300 UNITS/3 ML VIAL SC PRN ×2 (12:59→16:22)
[2018-04-27 15:00] LABS: Hemoglobin 11.5 g/dL (12.0-16.0)
[2018-04-27 15:35] LABS: Anion Gap 23 mmol/L (10-20); BUN (Urea Nitrogen) 32 mg/dL (9.8-20.1); Calc. Creatinine Clearance 38 mL/min (70-130); Calcium 7.4 mg/dL (7.8-10.44); Carbon Dioxide 19 mmol/L (23-31); Chloride 99 mmol/L (98-107); Estimated GFR-MDRD 19; Glucose 334 mg/dL (80-115); Magnesium 2.2 mg/dL (1.6-2.6); Phosphorus 9.9 mg/dL (2.3-4.7); Potassium 3.3 mmol/L (3.5-5.1); Sodium 138 mmol/L (136-145)
[2018-04-27 22:25] VITALS: BP 84/58
--- NOTE | 2018-04-27 23:56 | PDOC.EVN ---
Event Note - Event Note Event Note: Spoke with family at bedside with Dr. Romano. Family curious if addition of third pressor would be helpful. Patient examined. VS: HR 104 BP: 74/57 MAP 64 Gen: Resting comfortably on ventilator. Eyes: pupils dilated and non responsive to light Heart: RRR Lungs: CTAB, no spontaneous respirations on vent Neuro: no reaction to painful stimuli to bilateral great toe. Patient's course discussed with family. Discussed that patient showing signs of brain . Discussed that additional pressor likely not to change course. Family decided to continue with DNR status but not add pressor at this time. Family would like to proceed with EEG in the morning prior to considering withdrawal of care. Patient thankful for discussion and all questions answered. Addendum - Attending - Attending Attestation Date/Time: 05/03/18 3050 I personally evaluated the patient and discussed the management with Dr. White. I agree with the History, Examination, Assessment and Plan documented above. I discussed pt.'s condition with the daughter and son at the time described above.
[2018-04-28 01:24] VITALS: TEMP 97.5
--- NOTE | 2018-04-28 02:31 | PDOC.EVN ---
Event Note - Event Note Event Note: residents paged [phone]. Pt in PEA, pressors had been DCd per family's request 5 mins prior. At bedside, pt in asystole, TOD 0131 04/28/18 - pupils fixed and dilated - no pulse/auscultated heart sounds - no spontaneous respirations - no withdrawal to painful stimuli the family does not request autopsy
--- NOTE | 2018-04-29 04:50 | DIS ---
DATE OF ADMISSION: 04/26/2018 DATE OF DISCHARGE: 04/28/2018 SUMMARY: RESIDENT: Orion Carvajal DO. ATTENDING: Rigo Romano MD. DATE OF : 04/28/2018. TIME OF : 01:31 a.m. CAUSE OF : Cardiac arrest, secondary to pulmonary embolism. SECONDARY DIAGNOSES: 1. Acute respiratory failure with hypoxia hypercapnia. 2. Acute kidney injury. 3. Elevated troponin. 4. Type 2 diabetes. 5. Hypertension. 6. Transaminitis. HOSPITAL COURSE: This is a 68-year-old female who on 04/26/2018 called EMS for chest pain and shortness of breath. Upon arrival to the patient's home, the patient decompensated and went to cardiac arrest. EMS initiated CPR and which continued until the patient arrived at [facility] Emergency Room, where they transferred the patient to [facility]. This took approximately 1 hour. During that hour, ROSC was obtained multiple times; however, this was subsequently lost. Finally upon arrival at [place], ROSC was achieved and maintained. The patient was intubated and sedated and had a pulmonary embolism confirmed by CT. Per the CT, there were filling defects in the distal main right and left pulmonary arteries in addition to upper and lower lobe segments. The patient was admitted to the ICU, where she initially needed pressor support and was om both Levophed and epinephrine drips. Over the course of first 24 hours, both pressors were able to be titrated down and in fact stopped and at one point, she needed p.r.n. hypertension medication in order to help control hypertension; however, this quickly resolved and as the patient became hypotensive again on the morning on 04/27/2018, the patient was started back on pressors again. There was an event at approximately 8:30 on , where there was a short period of pulseless; however, CPR was not needed as she responded immediately to epinephrine. Over the course of the , pressors had to be titrated up until there was consideration for adding a third pressor support medication. Palliative Care discussed options with family and they determined that the patient should be made DNR where she to have another episode of cardiac arrest. On the night of 04/27 going into 04/28, the patient's family decided that medical care should be less aggressive and their decision to not add an additional third pressor. On approximately 1:30, the patient was noted to be PEA for short period of time and then asystole. The patient was pronounced as at 1:31. Job ID: [id number] [facility]
--- NOTE | 2018-04-29 16:58 | EKG ---
Test Reason : Blood Pressure : / mmHG Vent. Rate : 100 BPM Atrial Rate : 100 BPM P-R Int : 144 ms QRS Dur : 112 ms QT Int : 374 ms P-R-T Axes : 071 -75 066 degrees QTc Int : 482 ms Sinus rhythm with Premature supraventricular complexes and Fusion complexes Left axis deviation Inferior infarct , age undetermined Abnormal ECG Confirmed by REEMA PELAYO ([id number]), digital editor IVELISSE FERREIRA ([id number]) on 04/29/2018 4:58:07 PM Referred By: Confirmed By:REEMA PELAYO
--- NOTE | 2018-05-01 11:57 | PQF ---
[employer] ViewerRAVEN HERNANDEZ ROBERT A MD [id number] CLINICAL DOCUMENTATION CLARIFICATION FORM: POST DISCHARGE Addendum to original discharge summary date: ____ Late entry note date: __ Please exercise your independent, professional judgment in responding to the clarification form. Clinical indicators are provided on the bottom of this form for your review Please check appropriate box(s): HEART FAILURE: A. TYPE: [ ] Systolic / HFrEF [ ] Diastolic / HFpEF [ ] Combined Systolic / Diastolic B. ACUITY [ ] Acute [ ] Acute on Chronic [ ] Chronic [ ] Other diagnosis [ ] Unable to determine In addition, please specify: Present on Admission (POA): [ ] Yes [ ] No [ ] Unable to determine For continuity of documentation, please document condition throughout progress notes and discharge summary. Thank You. CLINICAL INDICATORS - SIGNS / SYMPTOMS / LABS CHF- H&P, CONSULT 04/26 RISKS: Hypertension- H&P, D/S, ALL PROGRESS NOTES TREATMENTS: ON FUROSEMIDE- H&P (This form is maintained as a part of the permanent medical record) 2014 [employer]. All Rights Reserved [employer] Bethany [email or web address]
== END 2018-04-28 03:36 | disposition expired | DRG 208 ==
LOC: ERS 03:28 → CCU 04:56
PROVIDERS: ADMIT Family Medicine; ATTEND Family Medicine
PROC: 3E033XZ Introduction of Vasopressor into Peripheral Vein, Percutaneous Approach (ICD-10-PCS; principal; 2018-04-26)
PROC: 5A1945Z Respiratory Ventilation, 24-96 Consecutive Hours (ICD-10-PCS; 2018-04-26)
PROC: 03HB33Z Insertion of Infusion Device into Right Radial Artery, Percutaneous Approach (ICD-10-PCS; 2018-04-26)
PROC: 06HM33Z Insertion of Infusion Device into Right Femoral Vein, Percutaneous Approach (ICD-10-PCS; 2018-04-26)
DX: I26.99 Other pulmonary embolism without acute cor pulmonale (principal); J96.01 Acute respiratory failure with hypoxia; J96.02 Acute respiratory failure with hypercapnia; K72.00 Acute and subacute hepatic failure without coma; N17.9 Acute kidney failure, unspecified; G93.1 Anoxic brain damage, not elsewhere classified; E87.2 Acidosis; E78.5 Hyperlipidemia, unspecified; E11.9 Type 2 diabetes mellitus without complications; F32.9 Major depressive disorder, single episode, unspecified; I11.0 Hypertensive heart disease with heart failure; I50.9 Heart failure, unspecified; I95.9 Hypotension, unspecified; I46.8 Cardiac arrest due to other underlying condition; D50.9 Iron deficiency anemia, unspecified; R74.0 Nonspecific elevation of levels of transaminase and lactic acid dehydrogenase [LDH]; R74.8 Abnormal levels of other serum enzymes; Z66 Do not resuscitate; Z88.0 Allergy status to penicillin; Z79.84 Long term (current) use of oral hypoglycemic drugs; Z86.718 Personal history of other venous thrombosis and embolism
CPT/HCPCS: 36415; 36416; 36556; 51702; 70450; 71045; 71275; 80076; 81003; 81015; 82553; 82805; 83605; 83735; 83880; 84100; 84443; 93005; 93010; 94002; 94003; 94760; 96365; 96366; 96368; 96374; 96375; J0171; J0360; J1644; J2001; J2060; J2704; J2997; J3010; J3101; J3475; J7050; J7070